=== PATIENT | male | born 1960 | race Caucasian/White ===

== ENCOUNTER 2019-06-10 09:42 | Inpatient (IN) | payer OTHER, SELFPAY ==
[2019-06-10] VITALS (11 sets, daily range): BP systolic 100–189; BP diastolic 79–99; PULSE 69–103; RESP 14–38; TEMP 35.9–37.2; O2SAT 89–94; BMI 41.8
--- NOTE | 2019-06-10 10:09 | RAD_ITS ---
STUDY: X-RAY CHEST REASON FOR EXAM: Male, 58 years old. dyspnea, cough TECHNIQUE: Single AP portable view of the chest. COMPARISON: None. FINDINGS: Patchy airspace disease within the mid to lower lobes bilaterally and along the periphery with areas of groundglass opacity present. There is no demonstrated pleural abnormality. Normal size heart. Normal mediastinum and sabas. Normal visualized pulmonary arteries. Normal visualized aortic arch and descending thoracic aorta. Normal visualized thoracic spine. Normal visualized ribs, clavicles, and shoulders. There is no demonstrated abnormality of the visualized soft tissue structures of the upper abdomen. RAD/Chest 1 View (Portable) IMPRESSION: Bilateral peripheral and central areas of airspace disease as above. Clinically correlate for acute infiltrate with underlying viral etiology of illness not excluded. Electronically Signed: Dann Barahona DO at 11:17 EDT , Service support ,
--- NOTE | 2019-06-10 10:09 | EKG12_ITS ---
Test Reason : COUGH Blood Pressure : / mmHG Vent. Rate : 067 BPM Atrial Rate : 067 BPM P-R Int : 124 ms QRS Dur : 096 ms QT Int : 408 ms P-R-T Axes : 008 -17 -03 degrees QTc Int : 431 ms Normal sinus rhythm Inferior infarct , age undetermined , cannot be excluded Abnormal ECG Confirmed by RAYMOND LAMBERT, MAGGI ([id number]), book editor SWAPNA GOMEZ ([id number]) on 06/13/2019 9:28:40 AM Referred By: JOAO Confirmed By:MAGGI ANDRADE MD
--- NOTE | 2019-06-10 10:11 | ED.VIS.URI ---
History of Present Illness Chief Complaint: Cough Informant: Patient Onset: Days - 9 days Context: Gradual Onset Timing: Continuous Quality: aching Location: myalgias Current Severity: Severe Maximum Severity: Severe Worsened by: - - nothing Relieved by: Tylenol Associated Symptoms: Nasal Congestion, Headache, Myalgias, Diarrhea, Shortness of Breath, Nonproductive cough. Negative for: Sinus Pressure, Nausea, Vomiting, Chest Pain, Hemoptysis, Productive Cough Narrative: 58-year-old male with a history of ulcerative colitis presents to the emergency department with 9 days of fever, cough, dyspnea on exertion and diarrhea. was seen here yesterday with similar symptoms. He states that he is not short of breath at rest only with exertion. Cough is nonproductive. He has not had any vomiting. He is having 8-10 episodes of loose watery diarrhea per day. He states that he normally has diarrhea from his ulcerative colitis but it has slightly worsened over the last 9 days. He has had intermittent fevers as high as 102 ?F orally. He did not have a fever today. He has general malaise and fatigue. No leg pain or swelling. No chest pain. No hemoptysis. He denies melena or hematochezia. He had a colonoscopy for his ulcerative colitis about 3 weeks ago and had his medications adjusted by his bobbin sorter at [facility]. He states he is on Remicade every 6 weeks and another oral medicine that he does not remember the name of. was tested for coronavirus here yesterday. She works in a [place]. Prior similar symptoms: No Recent Illness/Hospitalization: No Past Medical History - Allergies and Home Meds Allergies/Adverse Reactions: Allergies No Known Allergies Allergy (Verified 06/10/19 09:47) Primary Care Physician: Marcio Cortes,Out of [NON-STAFF] - Prior records reviewed: No Past Medical History: - - Ulcerative colitis and hyperlipidemia Surgical History: cholecystectomy Lives: With Family Smoking Status: Former smoker Alcohol: None Drugs: None Review of Systems General: Reports: Chills, Fever, Malaise Eyes: Denies: Visual changes - bilaterally, Blurred Vision - bilaterally, Diplopia ENT: Denies: Bilateral ear pain, Rhinorrhea, Sore throat Cardiovascular: Denies: Chest pain, Palpitations, Heart racing Respiratory: Reports: Dyspnea, Cough, Dyspnea on exertion. Denies: Sputum, Orthopnea, Paroxysmal nocturnal dyspnea Gastrointestinal: Reports: Diarrhea. Denies: Abdominal pain, Nausea, Vomiting, Constipation, Melena, Hematochezia Genitourinary: Denies: Dysuria, Hematuria, Frequency Musculoskeletal: Reports: Myalgias. Denies: Arthralgias, Neck pain, Back pain, Swelling, Extremity Pain Skin: Denies: Rash, Abscess, Abrasions, Wounds Neurological: Denies: Headache, Weakness, Parasthesia, Numbness Endocrine: Denies: Polyuria, Polydipsia Physical Exam Vital Signs/Narrative: Vital Signs Temp Pulse Resp BP Pulse Ox 06/10/19 09:44 96.7 F L 83 18 111/79 94 Inital Vital Signs reviewed: Yes General: Well nourished, Well developed Head: Normocephalic, Atraumatic Eyes: Perrl, EOMI Ears: Normal external canal, TM's clear Nose: Normal Inspection, No Rhinorrhea Mouth/Throat: Normal Inspection, No Posterior Erythema, Airway Patent Neck: Supple, Nontender, No Lymphadenopathy, No Meningismus Cardiovascular: Regular rate, Regular rhythm, No murmurs Respiratory: No distress, Chest nontender, Diminished Abdomen: Soft, Nontender, Nondistended, Normal bowel sounds, No masses Back: Nontender, Normal Inspection Extremities: Nontender, No edema Skin: Normal color, No rash Neurological: Alert, Oriented x3 Psychological: Normal affect, Normal Mood Diagnostic/Tx/Re-eval Chest X-Ray - ED: 1 View, Read by ED Physician, Read by Radiologist, Right Infiltrate, Left Infiltrate - Rhythm Strip Rhythm Strip: Sinus Rhythm Rate: 67 Ectopy: None - EKG Initial EKG Interpretation: Sinus Rhythm, No Acute Injury Pattern Prior: Unchanged - Medical Decision Making Patient presents with upper respiratory symptoms. His was seen here yesterday and worked up and discharged and tested for coronavirus. He is 93% on room air and is not normally on oxygen. He does not have a fever here but he took Tylenol this morning at 8 AM. His laboratory work-up was essentially unremarkable but his chest x-ray did show bilateral infiltrates with groundglass changes concerning for COVID-19. We had the patient walking in place in his room and he desaturated to 90% and his respiratory rate went up to 40 with a high concern for COVID-19. And with these findings with walking in place we feel the patient requires admission. Azithromycin for his bilateral pneumonia as we are on shortage of IV azithromycin and IV Rocephin . I spoke with the hospitalist who agreed to admit. At this time the patient's vital signs are stable. ED Disposition - Plan for ED Patient: Disposition: [facility] Diagnosis: Bilateral pneumonia, R/O COVID-19 Referrals: [facility] Doctor,Out of [NON-STAFF] -
[2019-06-10] MEDS: 0.9% Normal Saline 1,000 ML 1000 ML IV (10:15)
[2019-06-10 10:23] LABS: Absolute Lymphocyte Count 0.55 X10^3/uL (0.83-4.51); Absolute Neutrophil Count 6.5 X10^3/uL (2.0-7.7); Basophil# 0.01 X10^3/uL; Basophil% 0.1 % (0-1); Eosinophil# 0.12 X10^3/uL; Eosinophils% 1.6 % (0-5); Hematocrit 45.4 % (40-54); Hemoglobin 14.7 g/dL (13.0-16.5); Lymphocyte # 0.55 X10^3/ul (4.0); Lymphocyte % 7.3 % (19-41); Mean Corp Hgb Conc 32.4 g/dL (32-36); Mean Corpuscular Hgb 29.9 pg (27.0-32.0); Mean Corpuscular Volume 92.5 fL (80-94); Mean Platelet Vol. 9.7 fl (6.2-12.0); Monocyte# 0.41 X10^3/uL; Monocyte% 5.4 % (0-10); NRBC Flagged by Analyzer 0 % (0-5); Neutrophil # 6.45 X10^3/uL (2.7-7.7); Neutrophil % 85.5 % (47-70); POSITIVE DIFFERENTIAL YES; POSITIVE MORPHOLOGY YES; Platelet Count 244 K/mm3 (150-450); RBC Distribution Width CV 13.9 % (11.6-14.6); RBC Distribution Width SD 47.5 fl (35.1-43.9); Red Blood Count 4.91 M/mm3 (4.6-6.2); White Blood Count 7.6 K/mm3 (4.4-11.0)
[2019-06-10 10:25] LABS: Differential Indicated SCAN CRITERIA MET
[2019-06-10 10:34] LABS: Anion Gap 5 (5-15); BUN 13 mg/dL (7-18); BUN/Creat Ratio 13.4 RATIO (10-20); Chloride 107 mmol/L (98-107); Creatinine, Serum 0.97 mg/dL (0.70-1.30); EST Glomerular Filtration Rate 85 mL/min (>60); Est Glom Filt Rate - Afr Amer 103 mL/min (>60); Estimated Creatinine Clearance 82.27 ml/min; Glucose 119 mg/dL (74-106); Potassium 3.2 mmol/L (3.5-5.1); Sodium Level 140 mmol/L (136-145)
[2019-06-10] MEDS: Ceftriaxone 1 GM/50 ML BAG IV (12:02)
--- NOTE | 2019-06-10 12:03 | HP.PCM_ITS ---
History of Present Illness Date of Admission: 06/10/19 Chief Complaint: cough, shortness of breath The patient is a 58 year old M with a past medical history as outlined was admitted through the ED on 06/10/2019 with a complaint of cough and shortness of breath for about 9 days. His also had similar symptoms and came to the ED 1 day ago. She was screened for COVID-19 and tests pending and she was sent home. 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 Patient symptoms however persisted along with exertional dyspnea and worsening shortness of breath. He denies any recent travel or surgeries. . He admitted to low grade fever of ~ 101F, no chills, no nausea no vomiting or diarrhea. He did admit to palpitations but denied any chest pain. Review of systems was otherwise negative. On review in the ED, vitals were stable apart from respiratory rate which went as high as 38. Chemistry showed potassium of 3.2 and CBC was unremarkable with WBC of 7.6. EKG showed no acute ST changes. Chest x-ray showed bilateral peripheral and central areas of airspace disease. Chest CT done showed multifocal infiltrates consistent with multifocal pneumonia. He has been admitted to be managed for acute hypoxic respiratory insufficiency due to community-acquired pneumonia. COVID screen ordered by ED. [] Past Medical History Allergies No Known Allergies Allergy (Verified 06/10/19 09:47) Home Medications: Ambulatory Orders Medication Instructions Recorded Atorvastatin Calcium [Lipitor] 20 mg PO DAILY 06/10/19 Azathioprine 50 mg PO DAILY 06/10/19 Ferrous Sulfate 325 mg PO DAILY 06/10/19 Sertraline HCl [Zoloft] 100 mg PO DAILY 06/10/19 traZODone [Desyrel] 100 mg PO QHS 06/10/19 Surgical History: cholecystectomy Lives: With Family Smoking Status: Former smoker Alcohol: None Drugs: None - *Family History Maternal History Items: Diabetes, High Cholesterol, Hypertension Paternal History Items: No pertinent history Review of Systems Constitutional: Reports: Malaise, Weakness. Denies: Anorexia, Chills, Fever HEENT: Denies: Head Aches, Sinus Congestion, Sinus Drainage Cardiovascular: Denies: Chest Pain, Chest Tightness, Edema, Light Headedness, Palpitations Respiratory: Reports: Cough, Shortness of Breath, Shortness of breath at rest, Shortness of breath upon exertion, Sputum production. Denies: Hemoptysis, Pleuritic Pain, Wheezing Gastrointestinal: Denies: Abdominal Pain, Nausea, Vomiting Genitourinary: Denies: Dysuria Musculoskeletal: Denies: Joint Pain, Joint Tenderness Skin: Denies: Rash, Wounds Neurological: Denies: Numbness, Tingling, Focal weakness Psychiatric: Denies: Anxiety, Depression, Homicidal Ideations, Suicidal Ideations Hematologic/ Lymphatic: Denies: Easy Bruising, Easy Bleeding VTE Information - Inpt Only VTE Present on Admission: No VTE Pharm Prophylaxis ordered?: Yes Patient Problems: Active and Suspected Problems Bilateral pneumonia (Acute) - Physical Exam Vitals/I&O's: Vital Signs Temp Pulse Resp BP Pulse Ox 98.9 F 69 38 H 100/80 93 06/10/19 11:41 06/10/19 11:41 06/10/19 11:41 06/10/19 11:41 06/10/19 11:41 Oxygen Delivery Method Room Air Weight: 275 lb Body Mass Index (BMI) 41.8 General: Alert, Oriented x3, Cooperative, No apparent distress HEENT: Atraumatic, PERRLA, EOMI, Normocephalic Oral: Moist Mucosa Neck: Supple, No JVD, Negative Carotid Bruits Lungs: Clear to auscultation, Normal air movement, No rhonchi, No wheeze, No rales, Tachypneic Cardiovascular: Regular rate, Regular Rhythm, Normal S1, Normal S2, No murmurs Abdomen: Bowel Sounds Present, Soft, Non Tender, Non-Distended, No Hepato- splenomegaly Extremities: No clubbing, No cyanosis, No edema, Capillary Refill Less than 3 Seconds Skin: No rashes, No breakdown Musculoskeletal: No Tenderness to Palpation of Joints or Extremities Lymphatic: No Cervical, Supraclavicular, or Inguinal Adenopathy Neurological: Cranial nerves II-XII grossly intact, Neuro grossly intact, Motor Exam 5/5 strength throughout Psych/Mental Status: Normal Affect, Appropriate, Alert and oriented to time, place, person, mood and affect Laboratory Results 06/10/19 10:11: WBC 7.6, RBC 4.91, Hgb 14.7, Hct 45.4, MCV 92.5, MCH 29.9, MCHC 32.4, RDW Std Deviation 47.5 H, RDW Coeff of [place]mer[place] 13.9, Plt Count 244, MPV 9.7, Immature Gran % (Auto) 0.100, Neut % (Auto) 85.5 H, Lymph % (Auto) 7.3 L, [place] % (Auto) 5.4, Eos % (Auto) 1.6, Baso % (Auto) 0.1, Absolute Neuts (auto) 6.5, Absolute Lymphs (auto) 0.55 L, Nucleated RBC % 0, Differential Comment COMMENT 06/10/19 10:11: Sodium 140, Potassium 3.2 L, Chloride 107, Carbon Dioxide 28.0, Anion Gap 5, BUN 13, Creatinine 0.97, Estim Creat Clear Calc 82.27, Est GFR (MDRD) Af Amer 103, Est GFR (MDRD) Non-Af 85, BUN/Creatinine Ratio 13.4, Glucose 119 H, Calcium 9.0 Diagnostic Data Chest X-Ray 06/10/19 10:09 IMPRESSION: Bilateral peripheral and central areas of airspace disease as above. Clinically correlate for acute infiltrate with underlying viral etiology of illness not excluded. Electronically Signed: Dann Barahona DO at 11:17 EDT , Service support , Chest CTA 06/10/19 12:03 IMPRESSION: Multifocal infiltrates consistent with multifocal pneumonia. In the appropriate setting clinical setting and testing these findings could represent atypical viral pneumonia. No visualized pulmonary embolism. Mild cardiomegaly. Mild splenomegaly. Electronically Signed: Thuy Guzman MD at 14:14 EDT Tel , Service support , ADDENDUM: 06/10/19 1428 IMPRESSION: Multifocal infiltrates consistent with multifocal pneumonia. In the appropriate setting clinical setting and testing these findings could represent atypical viral pneumonia. No visualized pulmonary embolism. Mild cardiomegaly. Mild splenomegaly. N.B. : The above information has been verbally conveyed by Thuy Guzman MD to BHANU WARD, on 06/10/2019 14:21:23 (ET). Electronically Signed: Thuy Guzman MD at 14:14 EDT Tel , Service support , Current Medications Ceftriaxone Sodium (Rocephin) 1 gm in 50 mls @ 100 mls/hr IV X1 ONE Stop: 06/10/19 12:06 Last Admin: 06/10/19 12:02 Dose: 100 mls/hr Documented by: Assessment/Plan All Active Problems Bilateral pneumonia (Acute) 58-year-old male admitted with a complaint of shortness of breath and cough. 1. Community-acquired pneumonia and probable COVID infection * works in [employer], and had similar symptoms as patient * admit to Med Surg with telemetry * COVID screen ordered and is pending. COVID precautions. * Has no leukocytosis and chest x-ray showed bilateral peripheral and central areas of airspace disease. His chest CT done and is pending but by my read there is no evidence of PE and also shows evidence of bilateral pneumonia. * Titrate oxygen to maintain saturation above 90%. Continue breathing treatments with DuoNeb's. IV ceftriaxone and IV azithromycin. * Check for sputum cultures and blood cultures. * 2. Acute hypoxic respiratory insufficiency due to community-acquired pneumonia. * Patient became tachypneic up to the low 40s and high 30s. Saturation also dropped to about 88% with ambulation on room air. Chest x-ray findings as above. * On IV ceftriaxone every 3 x 3. Breathing treatments with DuoNeb's. * Titrate oxygen to maintain saturation above 90%. 3. hypokalemia: K is 3.2. Will replace and monitor 4. Hyperlipidemia: On atorvastatin. 5. Depression: On sertraline and trazodone. DVTProphylaxis: Lovenox Code Status: Full code * Patient counseled extensively about different types of CODE STATUS including full code, DNR CCA and DNR CCA. Patient elects to be full code. Total [id number] time 17 minutes. * Inpatient E&M: 66582 Init Hosp L3 Procedures: 64200 Advncd Care Plan 30 Min
--- NOTE | 2019-06-10 12:03 | CT_ITS ---
We are attempting to reach an attending provider to discuss findings. An addendum with communication details will be sent when the communication is complete. STUDY: CTA CHEST REASON FOR EXAM: Male, 58 years old. Dyspnea, cough x 1.5 weeks, fever, change in taste, chest tightness. RADIATION DOSAGE (If Supplied By Facility): CTDIvol = ( 11.47 ) mGy, DLP = ( 535.79 ) mGycm TECHNIQUE: The examination was performed with the intravenous administration of 100mL Isovue 370. Post-processing of the angiographic images was performed, with multiplanar reformation and 3D reconstruction. Individualized dose optimization techniques were used for this CT. COMPARISON: June 10, 2019 chest x-ray FINDINGS: Normal enhancement of the main pulmonary artery and right and left pulmonary arteries. Normal enhancement of the bilateral peripheral pulmonary arteries. There is no demonstrated pulmonary embolism. There is trace calcification of the aorta. There is no demonstrated aortic dissection. There is mild cardiac enlargement. There are a few nonspecific subcentimeter and borderline 1.2 cm mediastinal lymph nodes. Normal hilar regions. Normal visualized trachea and bronchi. There multifocal areas of subtle groundglass opacities in the lung apices with greater consolidation within the middle lobes and in the lung bases. There are few areas of rounded consolidation. Normal pleura. Normal chest wall structures. There are degenerative changes of thoracic spine. There are a few punctate calcifications in the spleen suggestive of old granulomatous disease. The spleen measures [address]/CTA Chest W/WO Contrast IMPRESSION: Multifocal infiltrates consistent with multifocal pneumonia. In the appropriate setting clinical setting and testing these findings could represent atypical viral pneumonia. No visualized pulmonary embolism. Mild cardiomegaly. Mild splenomegaly. Electronically Signed: Thuy Guzman MD at 14:14 EDT Tel , Service support ,
--- NOTE | 2019-06-10 12:06 | ED.DCSUM_ITS ---
- ER Visit Summary Date of Service: 06/10/19 Chief Complaint: [Cough and shortness of breath, addendum to dictation by physician certified physician's assistant Juan Jose Kingston] History of Present Illness: The patient is a 58 M [presented with cough and shortness of breath for about 9 days. Patient's also with similar sympt oms. Patient's works in a prison. Patient's was in the emergency department yesterday and tested for COVID-19. Patient complains of exertional dyspnea. Patient has been progressively getting more short of breath. He is not had any recent travel or surgery. He denies any chest pain.] Physical Examination: [HEENT-PERRLA, EOMI. Cranial nerves II through XII grossly intact. TMs clear. Mucous membranes moist. No adenopathy. Cardiovascular-regular rate and rhythm without murmur or ectopy Lungs-good aeration bilaterally. Patient has some rhonchi bilaterally. Coarse breath sounds bilaterally. Abdomen-normoactive bowel sounds, soft, nontender, no rebound or rigidity, no peritoneal signs. Extremities-intact ?4, normal range of motion, normal pulses, atraumatic] Test Results: [See with it was normal. Chemistries unremarkable. Chest x-ray showed bilateral infiltrates.] Emergency Department Course and Treatment: [She was started on Rocephin and Zithromax. Discussed case with hospitalist who requested a CT scan of the chest which was ordered. While walking in place in the department [place] rate increased to over 40 and O2 duration around 90%. Treatment Plan: [Admit for treatment of bilateral pneumonia and rule out COVID- 19] Disposition: [Admit] Impression: [Bilateral pneumonia line Rule out COVID-19] This note was generated with [employer] dictation software. It may contain incorrect words, spelling, and punctuation that were not noted in review of the chart prior to signing ED Disposition - Plan for ED Patient: Referrals: [facility] Doctor,Out of [NON-STAFF] -
[2019-06-10] MEDS: Azithromycin 250 MG Tablet 500 MG PO (12:14)
[2019-06-10] MEDS: 0.9% Normal Saline 1,000 ML 150 ML IV ×2 (15:15→21:52)
[2019-06-10] MEDS: Acetaminophen 325 MG Tablet 650 MG PO (21:44)
[2019-06-10] MEDS: traZODone 100 MG Tablet PO (21:44)
[2019-06-11] VITALS (15 sets, daily range): BP systolic 123–175; BP diastolic 60–90; PULSE 68–93; RESP 14–34; TEMP 36.8–37.2; O2SAT 91–98
[2019-06-11 04:46] LABS: Absolute Lymphocyte Count 0.74 X10^3/uL (0.83-4.51); Absolute Neutrophil Count 7.1 X10^3/uL (2.0-7.7); Basophil# 0.01 X10^3/uL; Basophil% 0.1 % (0-1); Eosinophils% 1.2 % (0-5); Hematocrit 39.1 % (40-54); Hemoglobin 12.6 g/dL (13.0-16.5); Lymphocyte # 0.74 X10^3/ul (4.0); Lymphocyte % 8.8 % (19-41); Mean Corp Hgb Conc 32.2 g/dL (32-36); Mean Corpuscular Hgb 29.9 pg (27.0-32.0); Mean Corpuscular Volume 92.7 fL (80-94); Mean Platelet Vol. 9.7 fl (6.2-12.0); Monocyte# 0.47 X10^3/uL; Monocyte% 5.6 % (0-10); NRBC Flagged by Analyzer 0 % (0-5); Neutrophil # 7.08 X10^3/uL (2.7-7.7); Neutrophil % 83.9 % (47-70); Platelet Count 220 K/mm3 (150-450); RBC Distribution Width CV 14.2 % (11.6-14.6); RBC Distribution Width SD 48.4 fl (35.1-43.9); Red Blood Count 4.22 M/mm3 (4.6-6.2); White Blood Count 8.4 K/mm3 (4.4-11.0)
[2019-06-11 04:59] LABS: Anion Gap 6 (5-15); BUN 10 mg/dL (7-18); BUN/Creat Ratio 14.1 RATIO (10-20); Calcium,Total 8.4 mg/dL (8.5-10.1); Chloride 108 mmol/L (98-107); Creatinine, Serum 0.71 mg/dL (0.70-1.30); EST Glomerular Filtration Rate 122 mL/min (>60); Est Glom Filt Rate - Afr Amer 148 mL/min (>60); Estimated Creatinine Clearance 112.39 ml/min; Glucose 81 mg/dL (74-106); Potassium 3.3 mmol/L (3.5-5.1); Sodium Level 140 mmol/L (136-145)
--- NOTE | 2019-06-11 07:52 | NURSING ---
Gave update to pt's over the phone.
--- NOTE | 2019-06-11 08:00 | PN_ITS ---
Patient Problems: Active and Suspected Problems Bilateral pneumonia (Acute) Subjective: Patient with continued dyspnea, worse than prior, more severe with any movement or activity. He notes even dyspnea with attempted to talk on the phone. He continues to have cough. He does admit now to a frontal throbbing headache and nausea but no emesis. He does note that the back of his neck aches in his back aches as well. Patient does feel worse today than upon ED presentation the day prior. Discussed patient's history and he notes that he is actually on Imuran 200 mg daily as well as Remicade every 6 weeks for ulcerative colitis, following with a GI physician in [facility]. Patient denies recurrent fevers, chills, emesis, abdominal pain, chest pain. Objective: Physical Examination: General: awake, alert, oriented x 3 and cooperative, seated upright in the ICU/MS status bed, fatigued, coughing. Skin: normal color, turgor, no icterus, cyanosis. HEENT: AT/NC, EOMI, PERRLA, mildly dry MM, requested placement of mask given coughing ongoing. Lungs: Diffusely diminished BS, > bases, moderate effort, coughing during examination (dry), no rales, ronchi or wheezing. Heart: mildly tachycardic with regular rhythm; no gallop, rub audible. Abdomen: soft, morbidly obese, NTTP, ND, mildly hyperactive BS. Extremities: no cyanosis, clubbing, or edema. Neurological: patient awake, alert, oriented x 3; cognitive function appears baseline intact; pupils equally reactive to light and accomodation; cranial nerves II-XII grossly normal, moving all 4 extremities, no focal deficits, strength severely globally decreased secondary to acute presentation. Psychiatric: affect appears fatigued, ill, no acute evidence of depressive or anxiety feelings. Vitals/I&O's: Vital Signs Temp Pulse Resp BP Pulse Ox 98.5 F 83 14 139/74 H 94 06/11/19 04:30 06/11/19 06:10 06/11/19 04:30 06/11/19 04:30 06/11/19 04:30 Oxygen Flow Rate (L/min) 2 Oxygen Delivery Method Nasal Cannula Weight: 275 lb Body Mass Index (BMI) 41.8 Intake and Output for Last 24 Hours 06/09/19 06/10/19 06/11/19 23:59 23:59 23:59 Intake Total 2522.5 / 3172.5 1850 / 1850 Output Total 90 / 90 Balance 2522.5 / 3172.5 1759 / 176 Microbiology Past 72 Hours 06/11/19 04:40 Urine, Clean Catch Streptococcus pneumoniae Antigen (M - Final 06/11/19 04:40 Urine, Clean Catch Legionella Antigen - Final 06/10/19 15:38 Mucosa - Nasopharyngeal Respiratory Panel (PCR) - Final Laboratory Results 06/10/19 10:11: WBC 7.6, RBC 4.91, Hgb 14.7, Hct 45.4, MCV 92.5, MCH 29.9, MCHC 32.4, RDW Std Deviation 47.5 H, RDW Coeff of Rosmery 13.9, Plt Count 244, MPV 9.7, Immature Gran % (Auto) 0.100, Neut % (Auto) 85.5 H, Lymph % (Auto) 7.3 L, [place] % (Auto) 5.4, Eos % (Auto) 1.6, Baso % (Auto) 0.1, Absolute Neuts (auto) 6.5, Absolute Lymphs (auto) 0.55 L, Nucleated RBC % 0, Differential Comment COMMENT 06/10/19 10:11: Sodium 140, Potassium 3.2 L, Chloride 107, Carbon Dioxide 28.0, Anion Gap 5, BUN 13, Creatinine 0.97, Estim Creat Clear Calc 82.27, Est GFR ( MDRD) Af Amer 103, Est GFR (MDRD) Non-Af 85, BUN/Creatinine Ratio 13.4, Glucose 119 H, Calcium 9.0 06/11/19 04:30: WBC 8.4, RBC 4.22 L, Hgb 12.6 L, Hct 39.1 L, MCV 92.7, MCH 29.9, MCHC 32.2, RDW Std Deviation 48.4 H, RDW Coeff of Rosmery 14.2, Plt Count 220, MPV 9.7, Immature Gran % (Auto) 0.400, Neut % (Auto) 83.9 H, Lymph % (Auto) 8.8 L, [place] % (Auto) 5.6, Eos % (Auto) 1.2, Baso % (Auto) 0.1, Absolute Neuts (auto) 7.1, Absolute Lymphs (auto) 0.74 L, Nucleated RBC % 0 06/11/19 04:30: Sodium 140, Potassium 3.3 L, Chloride 108 H, Carbon Dioxide 26.0, Anion Gap 6, BUN 10, Creatinine 0.71, Estim Creat Clear Calc 112.39, Est GFR (MDRD) Af Amer 148, Est GFR (MDRD) Non-Af 122, BUN/Creatinine Ratio 14.1, Glucose 81, Calcium 8.4 L Current Medications Acetaminophen (Tylenol) 650 mg PO Q6H PRN PRN PRN Reason: Pain Score 1-10/Temp > 100.7 F Last Admin: 06/10/19 21:44 Dose: 650 mg Documented by: Albuterol Sulfate (Ventolin Aerosols) 2.5 mg INHALATION Q2H PRN PRN PRN Reason: Shortness of Breath/Wheezing Atorvastatin Calcium (Lipitor) 20 mg PO QHS [facility] Azathioprine (Imuran) 50 mg PO DAILY [facility] Dextrose (D50w Syringe) 0 gm IV X1 PRN; Protocol PRN Reason: Hypoglycemia Enoxaparin Sodium (Lovenox) 40 mg SC DAILY [facility] Ferrous Sulfate (Ferrous Sulfate) 325 mg PO DAILYCM [facility] Glucagon () 1 mg IM .X1 PRN PRN Reason: Hypoglycemia Ceftriaxone Sodium 2 gm/ (Sodium Chloride) 50 mls @ 100 mls/hr IV Q24 [facility] Stop: 06/18/19 10:01 Azithromycin 500 mg/ Dextrose 255 mls @ 250 mls/hr IV Q24 [facility] Stop: 06/16/19 10:01 Ondansetron HCl (Zofran) 4 mg IV Q8H PRN PRN PRN Reason: NAUSEA/VOMITING Sertraline HCl (Zoloft) 100 mg PO DAILY [facility] Sodium Chloride () 10 - 40 ml IV UD PRN PRN Reason: SALINE FLUSH Trazodone HCl (Desyrel) 100 mg PO QHS [facility] Last Admin: 06/10/19 21:44 Dose: 100 mg Documented by: STROKE Vital Signs/Narrative: Vital Signs Temp Pulse Resp BP Pulse Ox 06/11/19 06:10 83 06/11/19 04:30 98.5 F 78 14 139/74 H 94 Medical Necessity - Tobacco Use Smoking Status: Former smoker Assessment/Plan All Active Problems Bilateral pneumonia (Acute) The patient is a 58 y/o M w/ PMHx: Ulcerative Colitis, HLD, Morbid Obesity, GERD, Depression and Anxiety, Former Tobacco use who presents to the [facility] ED on 06/10/19 with history of his recently being ill with upper respiratory type symptoms, 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 1. Acute Dyspnea, Cough, Fever with Bilateral Multifocal Pneumonia secondary to Suspected Acute Viral Syndrome, COVID-19: Patient with lymphopenia, CXR with bilateral peripheral and central areas of airspace disease, follow-up CTPA with multifocal infiltrates consistent with multifocal pneumonia, no evidence of pulmonary emboli, mild cardiomegaly, mild splenomegaly respiratory viral panel negative. Patient admitted from the ED as PCU status to the COVID unit (ICU), will maintain on oxygen with wean as tolerated to room air, continue PRN albuterol, maintain on IV Rocephin and Azithromycin, HOB, IS parameters w/ pending sputum cultures, noted negative urine antigens, will obtain procalcitonin, CRP, CPK, Ferritin, LDH, Alk phos/AST/ALT, continue supportive care including q 2 hour turning including prone given no prone bed availability and judicious hydration, closely monitor for worsening status for ARDS and multiorgan failure, requested COVID-19 testing and paperwork filled out and faxed to [facility] 06/11/19. If patient worsens with need for oxygen >6 L would plan consultation with the ICU physician and continued close evaluation for consideration of intubation. 2. Hypokalemia: Admission K+ 3.3, will obtain magnesium level, supplementation given, repeat level in AM. 3. Elevated BP without hypertensive diagnosis: Elevated systolic above goal upon presentation, has improved but will continue to closely monitor especially given concurrent history and habitus with initiation of oral regimen if appropriate, PRN IV hydralazine in interim. 4. Ulcerative colitis: Patient with Remicade every 6 weeks, following with GI physician in [facility], will continue patient azathioprine regimen with corrected dose. 5. Anxiety and Depression: Will continue home sertraline regimen. 6. Fe Deficiency Anemia: Admission hemoglobin 14.7, repeat on 06/11/2019 12.6, Will continue Fe supplementation. 7. Hyperlipidemia: Continue home statin regimen. AM FLP. 8. Morbid Obesity: Weight loss and lifestyle changes encouraged. 9. GERD: Maintain on famotidine. 10. DVT Prophylaxis: SCDs, lovenox. Inpatient E&M: [id number] [facility] Hosp L3
[2019-06-11] MEDS: Enoxaparin 40 MG/0.4 ML Syringe SC (10:07)
[2019-06-11] MEDS: Famotidine 20 MG Tablet 40 MG PO (10:07)
[2019-06-11] MEDS: guaiFENesin 1,200 MG Tablet 1200 MG PO ×2 (10:08→22:08)
[2019-06-11] MEDS: Ferrous Sulfate 325 MG Tablet PO (10:08)
--- NOTE | 2019-06-11 10:45 | CASEMGMT ---
RN CM Assessment Note Presentation: shortness of breath, COVID-19 testing. also has been tested, but is at home. Intro role of CM and purpose of RN CM assessment to patient via call to room. Demographics, PCP and Pharmacy verified. Pt states he is very independent, no prior care needs. Plan is to return home when able. Discussed testing for COVID 19 is pending and if pt would dc prior to results being back, would need to self isolate along with his . Pt does not have concerns re: food, medications as family can assist. Pt has area of home to self isolate if needed. RN CM let pt know nurse and physician would be reviewing instructions further on dc. Pt has good understanding and verbalized he has no questions at this time. PCP: Dr. Jose Santa Specialists: Dr. Geovani Mendez, GI specialist in [place], [place] (Hx of ulcerative colitis) Preferred Pharmacy: [facility] Insurance: [employer] Prescription Benefit: yes LNOK : , Amy Living Arrangements: Lives independently with . Denies any care needs prior to admission. Transportation: drives, can drive DME: none HHC: none Patient DC goals: Home on discharge DC PLAN: Home on discharge. Pt is on 2L NC and Saturation 93-95%. Will follow for discharge needs, and oxygen needs if indicated. RN CM advised to contact cm for any concerns/needs that may arise. Val STRINGER RN ACM
[2019-06-11 14:32] LABS: AST(SGOT) 34 U/L (15-37); Alanine Aminotransfer ALT/SGPT 37 U/L (16-61); Albumin, Serum 2.3 g/dL (3.2-5.0); Alkaline Phosphatase 59 U/L (45-117); Bilirubin, Direct 0.19 mg/dL (0.00-0.30); Ferritin 295 ng/mL (26-388); Globulin 4.3 g/dL (2.2-4.2); LDH 271 U/L (87-241); Magnesium 1.9 mg/dL (1.6-2.6); Protein, Total 6.6 g/dL (6.4-8.2)
--- NOTE | 2019-06-11 14:59 | CCHN_ITS ---
Hospitalist Note Patient reassessment as noted mild increased tachypnea and oxygenation lower 90s on 2 L nasal cannula. Patient resting, notes feeling improved since a.m. but states with any movement he does become extremely dyspneic. Currently respiratory rate in the high 20s oxygenating 91%. Increase oxygen to 3 L nasal cannula and let patient rest while visualizing and rate decreased and oxygenation increased to 93%. Discussed patient with mineral technologist and reviewed current presentation with plan continued close observation. RN and respiratory services also updated with continued close monitoring plan. Discussed intubation with patient and he would be amenable if increased oxygenation needs continue or if distress present.
[2019-06-11] MEDS: Acetaminophen 325 MG Tablet 650 MG PO ×2 (15:14→22:07)
[2019-06-11 15:35] LABS: Procalcitonin 0.08 ng/mL (0.00-0.09)
[2019-06-11] MEDS: 0.9% Saline Lock 10 ML Syringe IV (20:15)
--- NOTE | 2019-06-11 20:28 | NURSING ---
Pt states a metallic taste in mouth for past week. Decreased appetite, as evidenced by 20% of dinner eaten.
[2019-06-11] MEDS: Atorvastatin Calcium 20 MG Tablet PO (22:08)
[2019-06-11] MEDS: azaTHIOprine 50 MG Tablet 200 MG PO (22:09)
[2019-06-11] MEDS: Sertraline 100 MG Tablet PO (22:09)
[2019-06-11] MEDS: traZODone 100 MG Tablet PO (22:09)
[2019-06-12] VITALS (13 sets, daily range): BP systolic 118–163; BP diastolic 62–95; PULSE 61–91; RESP 17–27; TEMP 36.7–37.3; O2SAT 88–96
[2019-06-12 05:52] LABS: Absolute Lymphocyte Count 1.15 X10^3/uL (0.83-4.51); Absolute Neutrophil Count 7.1 X10^3/uL (2.0-7.7); Basophil# 0.01 X10^3/uL; Basophil% 0.1 % (0-1); Eosinophil# 0.02 X10^3/uL; Eosinophils% 0.2 % (0-5); Hematocrit 41.6 % (40-54); Hemoglobin 13.7 g/dL (13.0-16.5); Lymphocyte # 1.15 X10^3/ul (4.0); Lymphocyte % 13.2 % (19-41); Mean Corp Hgb Conc 32.9 g/dL (32-36); Mean Corpuscular Hgb 30.3 pg (27.0-32.0); Mean Platelet Vol. 9.6 fl (6.2-12.0); Monocyte# 0.44 X10^3/uL; NRBC Flagged by Analyzer 0 % (0-5); Neutrophil # 7.06 X10^3/uL (2.7-7.7); Platelet Count 262 K/mm3 (150-450); RBC Distribution Width CV 14.1 % (11.6-14.6); RBC Distribution Width SD 48.3 fl (35.1-43.9); Red Blood Count 4.52 M/mm3 (4.6-6.2); White Blood Count 8.7 K/mm3 (4.4-11.0)
[2019-06-12 06:09] LABS: ALB/GLOB Ratio 0.6 RATIO (0.9-2.4); AST(SGOT) 38 U/L (15-37); Alanine Aminotransfer ALT/SGPT 38 U/L (16-61); Albumin, Serum 2.6 g/dL (3.2-5.0); Alkaline Phosphatase 68 U/L (45-117); Anion Gap 8 (5-15); BUN 9 mg/dL (7-18); BUN/Creat Ratio 11.5 RATIO (10-20); Calcium,Total 8.7 mg/dL (8.5-10.1); Chloride 106 mmol/L (98-107); Creatinine, Serum 0.78 mg/dL (0.70-1.30); EST Glomerular Filtration Rate 109 mL/min (>60); Est Glom Filt Rate - Afr Amer 132 mL/min (>60); Estimated Creatinine Clearance 102.31 ml/min; Globulin 4.7 g/dL (2.2-4.2); Glucose 78 mg/dL (74-106); Potassium 3.2 mmol/L (3.5-5.1); Protein, Total 7.3 g/dL (6.4-8.2); Sodium Level 139 mmol/L (136-145)
--- NOTE | 2019-06-12 07:59 | PN_ITS ---
Patient Problems: Active and Suspected Problems Bilateral pneumonia (Acute) Subjective: Patient with no significant events overnight per self and per nursing report. He did have improvement in oxygenation and respiratory rate overnight as he had been significantly tachypneic and more hypoxic toward the afternoon of the day prior. He notes that he is still fatigued, weak, significantly dyspneic with any movement even rolling in the bed. He does have intermittent desaturations with movements. He notes continued dry cough, dyspnea, body aches with a stiff neck, nausea with decreased tolerance for meals and per discussions agreement to transition to clear liquids initially with no specific abdominal pain but ongoing loose stools concurrently. T-max overnight 99.2. Patient denies headaches, fevers, chills, emesis, abdominal pain, chest pain associated. Objective: Physical Examination: General: awake, alert, oriented x 3 and cooperative, laying in bed, fatigued, coughing still intermittently, more with requested increased effort and movement. Skin: normal color, turgor, no icterus, cyanosis. HEENT: AT/NC, EOMI, PERRLA, improved MMM, mask replaced. Lungs: Diffusely diminished BS, > bases, moderate effort, coughing continued intermittently during examination (dry), no rales, ronchi or wheezing. Heart: Improved, regular rate and regular rhythm currently; no gallop, rub audible. Abdomen: soft, morbidly obese, NTTP, ND, moderately hyperactive BS. Extremities: no cyanosis, clubbing, or edema. Neurological: patient awake, alert, oriented x 3; cognitive function appears baseline intact but notably fatigued, ill appearing; pupils equally reactive to light and accomodation; cranial nerves II-XII grossly normal, moving all 4 extremities, no focal deficits, strength severely globally decreased secondary to acute presentation. Psychiatric: affect appears fatigued, ill, no acute evidence of depressive or anxiety feelings. Vitals/I&O's: Vital Signs Temp Pulse Resp BP Pulse Ox 98.0 F 81 23 H 143/73 H 96 06/12/19 06:00 06/12/19 06:00 06/12/19 06:00 06/12/19 06:00 06/12/19 06:00 Oxygen Flow Rate (L/min) 2 Oxygen Delivery Method Nasal Cannula Weight: 275 lb Body Mass Index (BMI) 41.8 Intake and Output for Last 24 Hours 06/10/19 06/11/19 06/12/19 23:59 23:59 23:59 Intake Total 2522.5 / 3172.5 2155 / 2395 720 / 720 Output Total 90 / 90 Balance 2522.5 / 3172.5 2065 / 2305 720 / 720 Microbiology Past 72 Hours 06/10/19 21:45 Sputum, Expectorated/Coughed Gram Stain - Final 06/11/19 04:40 Urine, Clean Catch Streptococcus pneumoniae Antigen (M - Final 06/11/19 04:40 Urine, Clean Catch Legionella Antigen - Final 06/10/19 15:38 Mucosa - Nasopharyngeal Respiratory Panel (PCR) - Final Laboratory Results 06/11/19 04:30: Magnesium 1.9, Ferritin 295, Total Bilirubin 0.50, Direct Bilirubin 0.19, AST 34, ALT 37, Alkaline Phosphatase 59, Lactate Dehydrogenase 271 H, C-React Prot Ext Range 82.80 H, Total Protein 6.6, Albumin 2.3 L, Globulin 4.3 H 06/11/19 08:05: COVID-19 (HATTIE) Pending 06/11/19 15:00: Procalcitonin 0.08 06/12/19 05:40: WBC 8.7, RBC 4.52 L, Hgb 13.7, Hct 41.6, MCV 92.0, MCH 30.3, MCHC 32.9, RDW Std Deviation 48.3 H, RDW Coeff of Rosmery 14.1, Plt Count 262, MPV 9.6, Immature Gran % (Auto) 0.500, Neut % (Auto) 81.0 H, Lymph % (Auto) 13.2 L, [place] % (Auto) 5.0, Eos % (Auto) 0.2, Baso % (Auto) 0.1, Absolute Neuts (auto) 7.1, Absolute Lymphs (auto) 1.15, Nucleated RBC % 0 06/12/19 05:40: Sodium 139, Potassium 3.2 L, Chloride 106, Carbon Dioxide 25.0, Anion Gap 8, BUN 9, Creatinine 0.78, Estim Creat Clear Calc 102.31, Est GFR (MDRD) Af Amer 132, Est GFR (MDRD) Non-Af 109, BUN/Creatinine Ratio 11.5, Glucose 78, Calcium 8.7, Total Bilirubin 0.60, AST 38 H, ALT 38, Alkaline Phosphatase 68, Total Protein 7.3, Albumin 2.6 L, Globulin 4.7 H, Albumin/Globulin Ratio 0.6 L Current Medications Acetaminophen (Tylenol) 650 mg PO Q4H PRN PRN PRN Reason: Pain Score 1-10/Temp > 100.7 F Last Admin: 06/11/19 22:07 Dose: 650 mg Documented by: Albuterol Sulfate (Ventolin Aerosols) 2.5 mg INHALATION Q2H PRN PRN PRN Reason: Shortness of Breath/Wheezing Atorvastatin Calcium (Lipitor) 20 mg PO QHS [facility] Last Admin: 06/11/19 22:08 Dose: 20 mg Documented by: Azathioprine (Imuran) 200 mg PO 2200 [facility] Last Admin: 06/11/19 22:09 Dose: 200 mg Documented by: Dextrose (D50w Syringe) 0 gm IV X1 PRN; Protocol PRN Reason: Hypoglycemia Enoxaparin Sodium (Lovenox) 40 mg SC DAILY [facility] Last Admin: 06/11/19 10:07 Dose: 40 mg Documented by: Famotidine (Pepcid) 40 mg PO DAILY [facility] Last Admin: 06/11/19 10:07 Dose: 40 mg Documented by: Ferrous Sulfate (Ferrous Sulfate) 325 mg PO DAILYCM [facility] Last Admin: 06/11/19 10:08 Dose: 325 mg Documented by: Glucagon () 1 mg IM .X1 PRN PRN Reason: Hypoglycemia Guaifenesin (Mucinex) 1,200 mg PO BID [facility] Last Admin: 06/11/19 22:08 Dose: 1,200 mg Documented by: Hydralazine HCl (Apresoline Iv) 10 mg IV Q4H PRN PRN PRN Reason: SBP > 160 Ceftriaxone Sodium 2 gm/ (Sodium Chloride) 50 mls @ 100 mls/hr IV Q24 [facility] Stop: 06/18/19 10:01 Last Infusion: 06/11/19 10:38 Dose: Infused Documented by: Azithromycin 500 mg/ Dextrose 255 mls @ 250 mls/hr IV Q24 [facility] Stop: 06/16/19 10:01 Last Infusion: 06/11/19 12:37 Dose: Infused Documented by: Ondansetron HCl (Zofran) 4 mg IV Q8H PRN PRN PRN Reason: NAUSEA/VOMITING Sertraline HCl (Zoloft) 100 mg PO 2200 [facility] Last Admin: 06/11/19 22:09 Dose: 100 mg Documented by: Sodium Chloride () 10 - 40 ml IV UD PRN PRN Reason: SALINE FLUSH Last Admin: 06/11/19 20:15 Dose: 10 ml Documented by: Trazodone HCl (Desyrel) 100 mg PO QHS [facility] Last Admin: 06/11/19 22:09 Dose: 100 mg Documented by: STROKE Vital Signs/Narrative: Vital Signs Temp Pulse Resp BP Pulse Ox 06/12/19 06:00 98.0 F 81 23 H 143/73 H 96 Medical Necessity - Tobacco Use Smoking Status: Former smoker Assessment/Plan All Active Problems Bilateral pneumonia (Acute) The patient is a 58 y/o M w/ PMHx: Ulcerative Colitis, HLD, Morbid Obesity, GE RD, Depression and Anxiety, Former Tobacco use who presents to the [facility] ED on 06/10/19 with history of his recently being ill with upper respiratory type symptoms, 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 1. Acute Dyspnea, Cough, Fever with Bilateral Multifocal Pneumonia secondary to Suspected Acute Viral Syndrome, COVID-19: Patient with lymphopenia, CXR with bilateral peripheral and central areas of airspace disease, follow-up CTPA with multifocal infiltrates consistent with multifocal pneumonia, no evidence of pulmonary emboli, mild cardiomegaly, mild splenomegaly respiratory viral panel negative. Patient admitted from the ED as PCU status to the COVID unit (ICU), attempted 06/12/19 oxygenation decrease unsuccessful, still requiring now 2 L but attempting to assess with ambulation, expect >2L need, discussed with Pulmonary and they recommended to continue inpatient care until appropriate max 2L-3L usage with ambulation and activity. Continue PRN albuterol, maintain on IV Rocephin and Azithromycin, HOB, IS parameters w/ pending sputum cultures, noted negative urine antigens, pro calcitonin 0.08, lactate dehydrogenase 271, CRP 82.80, ferritin 295 all consistent in addition to imaging with COVID. Will continue supportive care including q 2 hour turning including prone given no prone bed availability and judicious hydration, closely monitor for worsening status for ARDS and multiorgan failure, requested COVID-19 testing which is pending. 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 If patient worsens with need for oxygen >6 L would plan consultation with the ICU physician and continued close evaluation for consideration of intubation. 2. Hypokalemia: Admission K+ 3.3, magnesium level 1.9, repeat 06/12/19 3.2, additional supplementation given, repeat level in AM. 3. Elevated BP without hypertensive diagnosis: Elevated systolic above goal upon presentation, worsens with any movement and desaturations, then normalizes, will continue to closely monitor with initiation of oral regimen if appropriate, PRN IV hydralazine in interim. 4. Ulcerative colitis: Patient with Remicade every 6 weeks, following with GI physician in [facility], will continue patient azathioprine regimen with corrected dose. Current diarrhea without abdominal pain with nausea likely secondary to #1. 5. Anxiety and Depression: Will continue home sertraline regimen. 6. Fe Deficiency Anemia: Admission hemoglobin 14.7, repeat on 06/12/2019 13.7, will continue Fe supplementation. 7. Hyperlipidemia: Continue home statin regimen. 8. Morbid Obesity: Weight loss and lifestyle changes encouraged. 9. GERD: Maintain on famotidine. 10. DVT Prophylaxis: SCDs, lovenox. 11. CODE STATUS: Full code. Inpatient E&M: [id number] Subs Hosp L2
[2019-06-12] MEDS: Famotidine 20 MG Tablet 40 MG PO (08:07)
[2019-06-12] MEDS: Ferrous Sulfate 325 MG Tablet PO (08:07)
[2019-06-12] MEDS: guaiFENesin 1,200 MG Tablet 1200 MG PO ×2 (08:07→21:22)
[2019-06-12] MEDS: Enoxaparin 40 MG/0.4 ML Syringe SC (08:07)
[2019-06-12] MEDS: 0.9% Saline Lock 10 ML Syringe IV (08:16)
--- NOTE | 2019-06-12 09:58 | CASEMGMT ---
RN CM Note. Chart reviewed. Pt continues to require oxygen, has shortness of breath with activity. Per physician- will continue care, no dc planned yet. Val MONTANAN RN AC
[2019-06-12] MEDS: Acetaminophen 325 MG Tablet 650 MG PO ×2 (13:29→21:22)
[2019-06-12] MEDS: azaTHIOprine 50 MG Tablet 200 MG PO (21:21)
[2019-06-12] MEDS: Atorvastatin Calcium 20 MG Tablet PO (21:22)
[2019-06-12] MEDS: Sertraline 100 MG Tablet PO (21:22)
[2019-06-12] MEDS: traZODone 100 MG Tablet PO (21:22)
[2019-06-13 02:00] VITALS: BP 127/74; PULSE 67; RESP 23; TEMP 36.6; O2SAT 97
[2019-06-13 04:00] VITALS: PULSE 61
[2019-06-13 04:54] LABS: Absolute Lymphocyte Count 0.82 X10^3/uL (0.83-4.51); Basophil# 0.01 X10^3/uL; Basophil% 0.2 % (0-1); Eosinophil# 0.06 X10^3/uL; Eosinophils% 1.1 % (0-5); Hemoglobin 12.9 g/dL (13.0-16.5); Lymphocyte # 0.82 X10^3/ul (4.0); Lymphocyte % 15.4 % (19-41); Mean Corp Hgb Conc 32.3 g/dL (32-36); Mean Corpuscular Hgb 29.5 pg (27.0-32.0); Mean Corpuscular Volume 91.5 fL (80-94); Mean Platelet Vol. 9.6 fl (6.2-12.0); Monocyte# 0.43 X10^3/uL; Monocyte% 8.1 % (0-10); NRBC Flagged by Analyzer 0 % (0-5); Neutrophil # 3.99 X10^3/uL (2.7-7.7); Neutrophil % 74.6 % (47-70); Platelet Count 265 K/mm3 (150-450); RBC Distribution Width SD 47.1 fl (35.1-43.9); Red Blood Count 4.37 M/mm3 (4.6-6.2); White Blood Count 5.3 K/mm3 (4.4-11.0)
[2019-06-13 05:11] LABS: ALB/GLOB Ratio 0.5 RATIO (0.9-2.4); AST(SGOT) 48 U/L (15-37); Alanine Aminotransfer ALT/SGPT 46 U/L (16-61); Albumin, Serum 2.3 g/dL (3.2-5.0); Alkaline Phosphatase 61 U/L (45-117); Anion Gap 6 (5-15); BUN 9 mg/dL (7-18); Calcium,Total 8.5 mg/dL (8.5-10.1); Chloride 107 mmol/L (98-107); Creatinine, Serum 0.69 mg/dL (0.70-1.30); EST Glomerular Filtration Rate 125 mL/min (>60); Est Glom Filt Rate - Afr Amer 152 mL/min (>60); Estimated Creatinine Clearance 115.65 ml/min; Globulin 4.5 g/dL (2.2-4.2); Glucose 79 mg/dL (74-106); Potassium 3.4 mmol/L (3.5-5.1); Protein, Total 6.8 g/dL (6.4-8.2); Sodium Level 140 mmol/L (136-145)
[2019-06-13 07:00] VITALS: PULSE 66; O2SAT 94
--- NOTE | 2019-06-13 07:19 | PN_ITS ---
Patient Problems: Active and Suspected Problems Bilateral pneumonia (Acute) Subjective: Patient overnight with no acute events per self or per nursing report. He notes feeling improved and less dyspneic than initial presentation however with any exertion still feels dyspneic. His oxygenation has improved. He notes that his abdominal cramping as well as nausea has improved but still having occasional loose stools and amenable to antidiarrheal regimen. Patient also notes that his coughing is lessened but recurrent with any exertion. Discussed recent results including positive COVID. Discussed plan of care which included oxygenation trial which was performed noting 92% on room air with oxygen removal within ambulation with decreased 87% with improvement to 90% with restart of 2 L nasal cannula and following this noted to be 90% resting on room air. Patient denies fevers, chills, nausea, emesis, abdominal pain, chest pain. Objective: Physical Examination: General: awake, alert, oriented x 3 and cooperative, seated upright in the bed, less fatigued than day prior, coughing only with examination but improved appearance. Skin: normal color, turgor, no icterus, cyanosis. HEENT: AT/NC, EOMI, PERRLA, MMM, mask replaced. Lungs: Improved air movement, still diffusely diminished BS, > bases, moderate effort, occasional coughing still with increased effort. Heart: Improved, regular rate and regular rhythm currently; no gallop, rub audible. Abdomen: soft, morbidly obese, minimal generalized discomfort to palpation, mildly to moderately hyperactive still. Extremities: no cyanosis, clubbing, or edema. Neurological: patient awake, alert, oriented x 3; cognitive function appears baseline intact, improved appearance, but notably fatigued, ill appearing; pupils equally reactive to light and accomodation; cranial nerves II-XII grossly normal, moving all 4 extremities, no focal deficits, strength improving, but still severely globally decreased secondary to acute presentation. Psychiatric: affect appears improved, less fatigued, no acute evidence of depressive or anxiety feelings. Vitals/I&O's: Vital Signs Temp Pulse Resp BP Pulse Ox 97.8 F 61 23 H 127/74 H 94 06/13/19 02:00 06/13/19 04:00 06/13/19 02:00 06/13/19 02:00 06/13/19 07:00 Oxygen Flow Rate (L/min) 2 Oxygen Delivery Method Nasal Cannula Weight: 276 lb 10.882 oz Body Mass Index (BMI) 41.8 Intake and Output for Last 24 Hours 06/11/19 06/12/19 06/13/19 23:59 23:59 23:59 Intake Total 2155 / 2395 2385 / 2385 240 / 240 Output Total 90 / 90 Balance 2065 / 2305 2385 / 2385 240 / 240 Microbiology Past 72 Hours 06/11/19 17:50 Sputum, Expectorated/Coughed Gram Stain - Final 06/11/19 17:50 Sputum, Expectorated/Coughed Respiratory Culture - Preliminary Appears to be normal respiratory willian. Further studies to follow. 06/10/19 21:45 Sputum, Expectorated/Coughed Gram Stain - Final 06/10/19 21:45 Sputum, Expectorated/Coughed Respiratory Culture - Preliminary Appears to be normal respiratory willian. Further studies to follow. 06/11/19 04:40 Urine, Clean Catch Streptococcus pneumoniae Antigen (M - Final 06/11/19 04:40 Urine, Clean Catch Legionella Antigen - Final 06/10/19 15:38 Mucosa - Nasopharyngeal Respiratory Panel (PCR) - Final Laboratory Results 06/11/19 08:05: COVID-19 (HATTIE) Detected 06/13/19 04:40: WBC 5.3, RBC 4.37 L, Hgb 12.9 L, Hct 40.0, MCV 91.5, MCH 29.5, MCHC 32.3, RDW Std Deviation 47.1 H, RDW Coeff of Rosmery 14.0, Plt Count 265, MPV 9.6, Immature Gran % (Auto) 0.600, Neut % (Auto) 74.6 H, Lymph % (Auto) 15.4 L, Dickinson % (Auto) 8.1, Eos % (Auto) 1.1, Baso % (Auto) 0.2, Absolute Neuts (auto) 4.0, Absolute Lymphs (auto) 0.82 L, Nucleated RBC % 0 06/13/19 04:40: Sodium 140, Potassium 3.4 L, Chloride 107, Carbon Dioxide 27.0, Anion Gap 6, BUN 9, Creatinine 0.69 L, Estim Creat Clear Calc 115.65, Est GFR (MDRD) Af Amer 152, Est GFR (MDRD) Non-Af 125, BUN/Creatinine Ratio 13.0, Glucose 79, Calcium 8.5, Total Bilirubin 0.50, AST 48 H, ALT 46, Alkaline Phosphatase 61, Total Protein 6.8, Albumin 2.3 L, Globulin 4.5 H, Albumin/Globulin Ratio 0.5 L Current Medications Acetaminophen (Tylenol) 650 mg PO Q4H PRN PRN PRN Reason: Pain Score 1-10/Temp > 100.7 F Last Admin: 06/12/19 21:22 Dose: 650 mg Documented by: Albuterol Sulfate (Proair Hfa (Sp) Surgery/Vent Pts) 1 puff INHALATION Q2H PRN PRN PRN Reason: Shortness of Breath/Wheezing Atorvastatin Calcium (Lipitor) 20 mg PO QHS [facility], [facility] Last Admin: 06/12/19 21:22 Dose: 20 mg Documented by: Azathioprine (Imuran) 200 mg PO 2200 [facility], [facility] Last Admin: 06/12/19 21:21 Dose: 200 mg Documented by: Dextrose (D50w Syringe) 0 gm IV X1 PRN; Protocol PRN Reason: Hypoglycemia Enoxaparin Sodium (Lovenox) 40 mg SC DAILY [facility], [facility]1983 Last Admin: 06/12/19 08:07 Dose: 40 mg Documented by: Famotidine (Pepcid) 40 mg PO DAILY [facility], [facility] Last Admin: 06/12/19 08:07 Dose: 40 mg Documented by: Ferrous Sulfate (Ferrous Sulfate) 325 mg PO DAILYCM [facility], [facility] Last Admin: 06/12/19 08:07 Dose: 325 mg Documented by: Glucagon () 1 mg IM .X1 PRN PRN Reason: Hypoglycemia Guaifenesin (Mucinex) 1,200 mg PO BID [facility], [facility] Last Admin: 06/12/19 21:22 Dose: 1,200 mg Documented by: Hydralazine HCl (Apresoline Iv) 10 mg IV Q4H PRN PRN PRN Reason: SBP > 160 Ceftriaxone Sodium 2 gm/ (Sodium Chloride) 50 mls @ 100 mls/hr IV Q24 [facility], [facility]1983 Stop: 06/18/19 10:01 Last Infusion: 06/12/19 08:43 Dose: Infused Documented by: Azithromycin 500 mg/ Dextrose 255 mls @ 250 mls/hr IV Q24 [facility] Stop: 06/16/19 10:01 Last Infusion: 06/12/19 09:18 Dose: Infused Documented by: Miscellaneous Information (Pocket Chamber) 1 each INHALATION PRN PRN PRN Reason: use with MDI Ondansetron HCl (Zofran) 4 mg IV Q8H PRN PRN PRN Reason: NAUSEA/VOMITING Potassium Chloride (K-Dur) 60 meq PO X1 ONE Stop: 06/13/19 07:19 Sertraline HCl (Zoloft) 100 mg PO 2200 [facility] Last Admin: 06/12/19 21:22 Dose: 100 mg Documented by: Sodium Chloride () 10 - 40 ml IV UD PRN PRN Reason: SALINE FLUSH Last Admin: 06/12/19 08:16 Dose: 10 ml Documented by: Trazodone HCl (Desyrel) 100 mg PO QHS [facility] Last Admin: 06/12/19 21:22 Dose: 100 mg Documented by: STROKE Vital Signs/Narrative: Vital Signs Pulse Pulse Ox 06/13/19 07:00 94 06/13/19 04:00 61 Medical Necessity - Tobacco Use Smoking Status: Former smoker Assessment/Plan All Active Problems Bilateral pneumonia (Acute) The patient is a 58 y/o M w/ PMHx: Ulcerative Colitis, HLD, Morbid Obesity, GERD, Depression and Anxiety, Former Tobacco use who presents to the [facility] ED on 06/10/19 with history of his recently being ill with upper respiratory type symptoms, 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 1. Acute Dyspnea, Cough, Fever with Bilateral Multifocal Pneumonia secondary to CONFIRMED Acute Viral Syndrome, COVID-19: ED presentation with lymphopenia, CXR with bilateral peripheral and central areas of airspace disease, follow-up CTPA with multifocal infiltrates consistent with multifocal pneumonia, no evidence of pulmonary emboli, mild cardiomegaly, mild splenomegaly respiratory viral panel negative. 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 Patient admitted from the ED as PCU status to the COVID unit (ICU), attempted 06/12/19 oxygenation decrease unsuccessful, improved oxygenation overnight with O2 assessment w/ ambulation 06/13/19 requring 2L NC only with ambulation to maintain 90% saturation. Continue PRN albuterol, maintain on IV Rocephin and Kym thromycin with oral transition at discharge and PRN albuterol for home. Sputum rare aretha, negative urine antigens, procalcitonin 0.08, lactate dehydrogenase 271, CRP 82.80, ferritin 295 all consistent in addition to imaging with COVID. Maintain on supportive care with encouraged aggressive positional changes and proning. Given clinical stabilization and oxygenation improvements will plan discharge to home today with continued home discharge precautions. Initiated also on antidiarrheal regimen PRN which will be continued at discharge. 2. Hypokalemia: Admission K+ 3.3, magnesium level 1.9, repeat 06/13/19 3.4, additional supplementation given. 3. Elevated BP without hypertensive diagnosis: Elevated systolic above goal upon presentation, worsens with any movement and desaturations, then normalizes, will have patient follow-up with PCP for repeat BP assessments and if remains elevated above goal (150s) then would add oral regimen. 4. Ulcerative colitis: Patient with Remicade every 6 weeks, following with GI physician in [facility], continued patient azathioprine regimen with corrected dose. Current diarrhea without abdominal pain with nausea likely secondary to #1. 5. Anxiety and Depression: Will continue home sertraline regimen. 6. Fe Deficiency Anemia: Admission hemoglobin 14.7, repeat on 06/13/2019 12.9, will continue Fe supplementation. 7. Hyperlipidemia: Continue home statin regimen. 8. Morbid Obesity: Weight loss and lifestyle changes encouraged. 9. GERD: Maintain on famotidine. 10. DVT Prophylaxis: SCDs, lovenox. 11. CODE STATUS: Full code. Inpatient E&M: 78387 Subs Hosp L2
[2019-06-13 08:00] VITALS: BP 154/74; PULSE 94; RESP 16; TEMP 36.6; O2SAT 92
[2019-06-13] MEDS: Ferrous Sulfate 325 MG Tablet PO (09:09)
[2019-06-13] MEDS: Enoxaparin 40 MG/0.4 ML Syringe SC (09:09)
[2019-06-13] MEDS: Famotidine 20 MG Tablet 40 MG PO (09:10)
[2019-06-13] MEDS: guaiFENesin 1,200 MG Tablet 1200 MG PO (09:10)
[2019-06-13] MEDS: 0.9% Saline Lock 10 ML Syringe IV (09:14)
[2019-06-13] MEDS: Acetaminophen 325 MG Tablet 650 MG PO (09:24)
[2019-06-13 09:25] VITALS: O2SAT 87; O2SAT 90
[2019-06-13] MEDS: Loperamide 2 MG Capsule PO (10:24)
--- NOTE | 2019-06-13 10:34 | DCINST_ITS ---
- Discharge Diagnoses Current Active Problems: Current Active and Chronic Problems 1. Acute Dyspnea, Cough, Fever with Bilateral Multifocal Pneumonia secondary to CONFIRMED Acute Viral Syndrome, COVID-19 2. Hypokalemia secondary to Diarrhea, GI losses 3. Elevated BP without hypertensive diagnosis 4. Ulcerative colitis, Chronic 5. Anxiety and Depression 6. Fe Deficiency Anemia 7. Hyperlipidemia 8. Morbid Obesity 9. GERD 10. CODE STATUS: Full code. You will use the following diet at home:: Other - Recommend cardiac diet. May maintain on full liquids and slowly transition to cardiac diet if still having any nausea. Your food should be the consistency of: Regular Your liquids should be the consistency of: Regular/Thin Discharge Activity: - - Continue supplemental oxygen until primary care re- evaluation and wean off once appropriate. Please maintain routine activity including out of bed/chair at least 6x daily and with all meals. Even when you do not have an appetite please eat a small portion of each meal. Maintain appropriate oral water intake. May resume sexual activity in: - - Avoid sexual intercourse until symptoms have completely resolved and afebrile. See instructions. Weight Bearing Status: Weight bearing as tolerated Call your doctor if you observe: Fever of 101 or Higher, Inability to urinate, Inability to have a bowel movement, Shortness of breath, Dizziness, Fainting spells, Chest pain, Uncontrolled pain Instructions: Traveling with Oxygen, Using Oxygen Safely, Using Oxygen at Home Additional Instructions: When can positive or suspected COVID-19 patients be discharged, what are the requirements and what needs to be in place for discharge? ?You can be discharged when you are clinically stable including improvement of oxygen needs and no high flow usage. ---You will need 2L NC continuous usage upon discharge. Please continue to lay on your belly (prone) frequently and rotate when resting also. ?You DO NOT need to meet criteria for transmission-based precautions to be discharged as these may be continued at home if needed. --In your case in your home this does not apply given your is also COVID positive. ?Household members must have access to PPE and willing to adhere to precaution measures at home if there are family members without COVID. ---In your care, your also has COVID therefore PPE is not necessary. ?Appropriate access to food delivery, supply delivery, medication delivery. ---Your noted she has been having delivery of supplies by your family, dropped in your garage and she has been able to cook. ---Your medications have been filled at the hospital to take home. ?Must be able to be transported by private vehicle. If it is another family member aside your dropping you at home, THEY MUST have PPE during the ride and you must also wear a mask. Home going instructions: ?Patient to continue similar isolation away from other family members and friends aside your who is also COVID positive. ?Please continue twice daily temperature checks, in the AM and evening and notify your primarly care physician immediately of any changes. Transmission-based Precaution Timeline: ?Patients with confirmed COVID-19 should remain under home isolation precautions for 7 days or until 72 hours after complete resolution of fever and symptoms (cough, dyspnea, myalgia, sore throat) without antipyretic medication (tylenol). ?Further testing is not required beyond this unless there was noted organ dysfunction. Follow-up Care: ?Please have immediate primary care follow-up (likely virtual). And they should be informed of a COVID-19 positive test. ?Please discuss any concerns and symptoms ongoing with your primary care physician as well as review temperature journal. IF YOU WORSEN AT ANY TIME, CONTACT EMS OR PRESENT TO THE ED FOR EVALUATION Allergies/Adverse Reactions: Allergies No Known Allergies Allergy (Verified 06/10/19 09:47) Medications to take at Discharge Atorvastatin Calcium [Lipitor] 20 mg PO DAILY 06/10/19 Azathioprine 50 mg PO DAILY 06/10/19 Ferrous Sulfate 325 mg PO DAILY 06/10/19 Sertraline HCl [Zoloft] 100 mg PO DAILY 06/10/19 traZODone [Desyrel] 100 mg PO QHS 06/10/19 Albuterol IH (ProAir) [Proair Hfa] 1 puff INHALATION Q2H PRN PRN #1 inhaler 06/13/19 Azithromycin 500 mg PO DAILY #1 tab 06/13/19 Cefdinir [Omnicef [equiv]] 300 mg PO Q12H #6 cap 06/13/19 Famotidine [Pepcid] 40 mg PO DAILY #30 tab 06/13/19 Guaifenesin [Mucinex] 1,200 mg PO BID #20 tab 06/13/19 Loperamide [Imodium] 2 mg PO Q4H PRN PRN #30 cap 06/13/19 Ondansetron [Zofran] 8 mg PO Q8H PRN PRN #30 tab 06/13/19 The following prescriptions were given: Azithromycin 500 mg PO DAILY #1 tab Transmission Status: Pending to [facility] Loperamide [Imodium] 2 mg PO Q4H PRN PRN #30 cap PRN Reason: LOOSE STOOLS Transmission Status: Pending to [facility] Guaifenesin [Mucinex] 1,200 mg PO BID #20 tab Transmission Status: Pending to [facility] Cefdinir [Omnicef [equiv]] 300 mg PO Q12H #6 cap Transmission Status: Pending to [facility] Famotidine [Pepcid] 40 mg PO DAILY #30 tab Transmission Status: Pending to [facility] Albuterol IH (ProAir) [Proair Hfa] 1 puff INHALATION Q2H PRN PRN #1 inhaler PRN Reason: Shortness of Breath/Wheezing Transmission Status: Pending to [facility] Ondansetron [Zofran] 8 mg PO Q8H PRN PRN #30 tab PRN Reason: nausea, emesis Transmission Status: Pending to [facility] Primary Care Physician: [facility] Doctor,Out of [NON-STAFF] - (Jose Santa) Please follow up with your Primary Care Physician in: Please follow-up within 2- 3 days preferentially of discharge. Test Results: Test results from this visit will be discussed in further detail at your follow- up appointment, if applicable. Proposed Discharge Date: 06/13/19
--- NOTE | 2019-06-13 10:52 | DS.PCM_ITS ---
Discharge Date and Diagnosis - Problem List Patient Problems: Active and Suspected Problems Bilateral pneumonia (Acute) Date of Admission: 06/10/19 Date of Discharge: 06/13/19 - Primary Discharge Diagnosis Active and Suspected Problems 1. Acute Dyspnea, Cough, Fever with Bilateral Multifocal Pneumonia secondary to CONFIRMED Acute Viral Syndrome, COVID-19 2. Hypokalemia secondary to Diarrhea, GI losses 3. Elevated BP without hypertensive diagnosis 4. Ulcerative colitis, Chronic 5. Anxiety and Depression 6. Fe Deficiency Anemia 7. Hyperlipidemia 8. Morbid Obesity 9. GERD 10. CODE STATUS: Full code. - Secondary Discharge Diagnosis 1. Ulcerative colitis, Chronic 2. Anxiety and Depression 3. Fe Deficiency Anemia 4. Hyperlipidemia 5. Morbid Obesity 6. 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 ED presentation with lymphopenia, CXR with bilateral peripheral and central areas of airspace disease, follow-up CTPA with multifocal infiltrates consistent with multifocal pneumonia, no evidence of pulmonary emboli, mild cardiomegaly, mild splenomegaly respiratory viral panel negative. 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 Patient admitted from the ED as PCU status to the COVID unit (ICU), attempted 06/12/19 oxygenation decrease unsuccessful, improved oxygenation overnight with O2 assessment w/ ambulation 06/13/19 requring 2L NC only with ambulation to maintain 90% saturation. Continue PRN albuterol, ma intain on IV Rocephin and Azithromycin with oral transition at discharge and PRN albuterol for home. Sputum rare aretha, negative urine antigens, procalcitonin 0.08, lactate dehydrogenase 271, CRP 82.80, ferritin 295 all consistent in addition to imaging with COVID. Maintain on supportive care with encouraged aggressive positional changes and proning. Given clinical stabilization and oxygenation improvements patient discharged to home with continued home discharge precautions, oxygenation and PRN agents as needed in addition to continued regimens as noted. Recommended follow-up with PCP closely and review of BP to ascertain if oral BP regimen start appropriate out of acute setting. Also, recommended close virtual PCP follow-up within 2-3 days to review admission, discuss COVID positive status. Discharge instructions included: When can positive or suspected COVID-19 patients be discharged, what are the requirements and what needs to be in place for discharge? ?You can be discharged when you are clinically stable including improvement of oxygen needs and no high flow usage. ---You will need 2L NC continuous usage upon discharge. Please continue to lay on your belly (prone) frequently and rotate when resting also. ?You DO NOT need to meet criteria for transmission-based precautions to be discharged as these may be continued at home if needed. ---In your case in your home this does not apply given your is also COVID positive. ?Household members must have access to PPE and willing to adhere to precaution measures at home if there are family members without COVID. ---In your care, your also has COVID therefore PPE is not necessary. ?Appropriate access to food delivery, supply delivery, medication delivery. ---Your noted she has been having delivery of supplies by your family, dropped in your garage and she has been able to cook. ---Your medications have been filled at the hospital to take home. ?Must be able to be transported by private vehicle. If it is another family member aside your dropping you at home, THEY MUST have PPE during the ride and you must also wear a mask. Home going instructions: ?Patient to continue similar isolation away from other family members and friends aside your who is also COVID positive. ?Please continue twice daily temperature checks, in the AM and evening and notify your primarily care physician immediately of any changes. Transmission-based Precaution Timeline: ?Patients with confirmed COVID-19 should remain under home isolation precautions for 7 days or until 72 hours after complete resolution of fever and symptoms (cough, dyspnea, myalgia, sore throat) without antipyretic medication (tylenol). ?Further testing is not required beyond this unless there was noted organ dysfunction. Follow-up Care: ?Please have immediate primary care follow-up (likely virtual). And they should be informed of a COVID-19 positive test. ?Please discuss any concerns and symptoms ongoing with your primary care physician as well as review temperature journal. IF YOU WORSEN AT ANY TIME, CONTACT EMS OR PRESENT TO THE ED FOR EVALUATION Patient Problems: Active and Suspected Problems Bilateral pneumonia (Acute) - Physical Exam Vitals/I&O's: Vital Signs Temp Pulse Resp BP Pulse Ox 97.9 F 94 16 154/74 H 90 06/13/19 08:00 06/13/19 08:00 06/13/19 08:00 06/13/19 08:00 06/13/19 09:25 Oxygen Flow Rate (L/min) [ 2 AMBULATION with Oxygen] Oxygen Flow Rate (L/min) 2 Oxygen Delivery Method Room Air Weight: 276 lb 10.882 oz Body Mass Index (BMI) 41.8 Intake and Output for Last 24 Hours 06/11/19 06/12/19 06/13/19 23:59 23:59 23:59 Intake Total 2155 / 2395 2385 / 2385 290 / 290 Output Total 90 / 90 Balance 2065 / 2305 2385 / 2385 290 / 290 Microbiology Past 72 Hours 06/11/19 17:50 Sputum, Expectorated/Coughed Gram Stain - Final 06/11/19 17:50 Sputum, Expectorated/Coughed Respiratory Culture - Preliminary Presumptive C albicans 06/10/19 21:45 Sputum, Expectorated/Coughed Gram Stain - Final 06/10/19 21:45 Sputum, Expectorated/Coughed Respiratory Culture - Preliminary Appears to be normal respiratory willian. Further studies to follow. 06/11/19 04:40 Urine, Clean Catch Streptococcus pneumoniae Antigen (M - Final 06/11/19 04:40 Urine, Clean Catch Legionella Antigen - Final 06/10/19 15:38 Mucosa - Nasopharyngeal Respiratory Panel (PCR) - Final Laboratory Results 06/11/19 08:05: COVID-19 (HATTIE) Detected 06/13/19 04:40: WBC 5.3, RBC 4.37 L, Hgb 12.9 L, Hct 40.0, MCV 91.5, MCH 29.5, MCHC 32.3, RDW Std Deviation 47.1 H, RDW Coeff of Rosmery 14.0, Plt Count 265, MPV 9.6, Immature Gran % (Auto) 0.600, Neut % (Auto) 74.6 H, Lymph % (Auto) 15.4 L, [place] % (Auto) 8.1, Eos % (Auto) 1.1, Baso % (Auto) 0.2, Absolute Neuts (auto) 4.0, Absolute Lymphs (auto) 0.82 L, Nucleated RBC % 0 06/13/19 04:40: Sodium 140, Potassium 3.4 L, Chloride 107, Carbon Dioxide 27.0, Anion Gap 6, BUN 9, Creatinine 0.69 L, Estim Creat Clear Calc 115.65, Est GFR (MDRD) Af Amer 152, Est GFR (MDRD) Non-Af 125, BUN/Creatinine Ratio 13.0, Glucose 79, Calcium 8.5, Total Bilirubin 0.50, AST 48 H, ALT 46, Alkaline Phosphatase 61, Total Protein 6.8, Albumin 2.3 L, Globulin 4.5 H, Albumin/Globulin Ratio 0.5 L Current Medications Acetaminophen (Tylenol) 650 mg PO Q4H PRN PRN PRN Reason: Pain Score 1-10/Temp > 100.7 F Last Admin: 06/13/19 09:24 Dose: 650 mg Documented by: Albuterol Sulfate (Proair Hfa (Sp) Surgery/Vent Pts) 1 puff INHALATION Q2H PRN PRN PRN Reason: Shortness of Breath/Wheezing Atorvastatin Calcium (Lipitor) 20 mg PO QHS [facility] Last Admin: 06/12/19 21:22 Dose: 20 mg Documented by: Azathioprine (Imuran) 200 mg PO 2200 [facility] Last Admin: 06/12/19 21:21 Dose: 200 mg Documented by: Dextrose (D50w Syringe) 0 gm IV X1 PRN; Protocol PRN Reason: Hypoglycemia Enoxaparin Sodium (Lovenox) 40 mg SC DAILY [facility] Last Admin: 06/13/19 09:09 Dose: 40 mg Documented by: Famotidine (Pepcid) 40 mg PO DAILY [facility] Last Admin: 06/13/19 09:10 Dose: 40 mg Documented by: Ferrous Sulfate (Ferrous Sulfate) 325 mg PO DAILYCM [facility] Last Admin: 06/13/19 09:09 Dose: 325 mg Documented by: Glucagon () 1 mg IM .X1 PRN PRN Reason: Hypoglycemia Guaifenesin (Mucinex) 1,200 mg PO BID [facility] Last Admin: 06/13/19 09:10 Dose: 1,200 mg Documented by: Hydralazine HCl (Apresoline Iv) 10 mg IV Q4H PRN PRN PRN Reason: SBP > 160 Ceftriaxone Sodium 2 gm/ (Sodium Chloride) 50 mls @ 100 mls/hr IV Q24 [facility] Stop: 06/18/19 10:01 Last Infusion: 06/13/19 09:39 Dose: Infused Documented by: Azithromycin 500 mg/ Dextrose 255 mls @ 250 mls/hr IV Q24 [facility] Stop: 06/16/19 10:01 Last Admin: 06/13/19 10:24 Dose: 250 mls/hr Documented by: Loperamide HCl (Imodium) 2 mg PO Q4H PRN PRN PRN Reason: LOOSE STOOLS Miscellaneous Information (Pocket Chamber) 1 each INHALATION PRN PRN PRN Reason: use with MDI Ondansetron HCl (Zofran) 4 mg IV Q8H PRN PRN PRN Reason: NAUSEA/VOMITING Sertraline HCl (Zoloft) 100 mg PO 2200 [facility] Last Admin: 06/12/19 21:22 Dose: 100 mg Documented by: Sodium Chloride () 10 - 40 ml IV UD PRN PRN Reason: SALINE FLUSH Last Admin: 06/13/19 09:14 Dose: 10 ml Documented by: Trazodone HCl (Desyrel) 100 mg PO QHS [facility] Last Admin: 06/12/19 21:22 Dose: 100 mg Documented by: Discharge Activity: - - Continue supplemental oxygen until primary care re- evaluation and wean off once appropriate. Please maintain routine activity including out of bed/chair at least 6x daily and with all meals. Even when you do not have an appetite please eat a small portion of each meal. Maintain appropriate oral water intake. May resume sexual activity in: - - Avoid sexual intercourse until symptoms have completely resolved and afebrile. See instructions. Weight Bearing Status: Weight bearing as tolerated Call your doctor if you observe: Fever of 101 or Higher, Inability to urinate, Inability to have a bowel movement, Shortness of breath, Dizziness, Fainting spells, Chest pain, Uncontrolled pain Home Medications: Medications to take at Discharge Atorvastatin Calcium [Lipitor] 20 mg PO DAILY 06/10/19 Azathioprine 50 mg PO DAILY 06/10/19 Ferrous Sulfate 325 mg PO DAILY 06/10/19 Sertraline HCl [Zoloft] 100 mg PO DAILY 06/10/19 traZODone [Desyrel] 100 mg PO QHS 06/10/19 Albuterol IH (ProAir) [Proair Hfa] 1 puff INHALATION Q2H PRN PRN #1 inhaler 06/13/19 Azithromycin 500 mg PO DAILY #1 tab 06/13/19 Cefdinir [Omnicef [equiv]] 300 mg PO Q12H #6 cap 06/13/19 Famotidine [Pepcid] 40 mg PO DAILY #30 tab 06/13/19 Guaifenesin [Mucinex] 1,200 mg PO BID #20 tab 06/13/19 Loperamide [Imodium] 2 mg PO Q4H PRN PRN #30 cap 06/13/19 Ondansetron [Zofran] 8 mg PO Q8H PRN PRN #30 tab 06/13/19 Following Prescrptions Were Given to Patient: Azithromycin 500 mg PO DAILY #1 tab Transmission Status: Pending to [facility] Loperamide [Imodium] 2 mg PO Q4H PRN PRN #30 cap PRN Reason: LOOSE STOOLS Transmission Status: Pending to [facility] Guaifenesin [Mucinex] 1,200 mg PO BID #20 tab Transmission Status: Pending to [facility] Cefdinir [Omnicef [equiv]] 300 mg PO Q12H #6 cap Transmission Status: Pending to [facility] Famotidine [Pepcid] 40 mg PO DAILY #30 tab Transmission Status: Pending to [facility] Albuterol IH (ProAir) [Proair Hfa] 1 puff INHALATION Q2H PRN PRN #1 inhaler PRN Reason: Shortness of Breath/Wheezing Transmission Status: Pending to [facility] Ondansetron [Zofran] 8 mg PO Q8H PRN PRN #30 tab PRN Reason: nausea, emesis Transmission Status: Pending to [facility] Primary Care Physician: [facility] Doctor,Out of [NON-STAFF] - (Jose Santa) Please follow up with your Primary Care Physician in: Please follow-up within 2- 3 days preferentially of discharge. Patient Instructions: Traveling with Oxygen, Using Oxygen Safely, Using Oxygen at Home Disposition: Home with Home Health Minutes spent on discharge:: 40 Patient Condition:: Stable Medical Necessity - Tobacco Use Smoking Status: Former smoker Meaningful Use Info Meaningful Use Diagnoses (Choose all that apply): None applicable Inpatient E&M: 14541 Disch Hosp
--- NOTE | 2019-06-13 11:02 | CASEMGMT ---
ARIES ZENG updated that patient will need home oxygen at discharge. ARIES ZENG called patient in room and provided list of home oxygen companies and patient is agreeable to [facility]. Script received and referral sent to [facility]. ARIES ZENG arranged for delivery of oxygen to room prior to discharge. Patient updated and had no further questions regarding discharge. Patient states his and children are able to assist with care, groceries, and medications.
== END 2019-06-13 13:15 | disposition home health service (06) | DRG 177 ==
LOC: ED 12:15 → ICU 06-11 07:12
PROVIDERS: Admitting Provider Student in an Organized Health Care Education/Training Program; Emergency Provider Physician Assistant Medical; PCP Family Medicine; Visit Provider Family Medicine
DX: U07.1 COVID-19 (principal); J12.89 Other viral pneumonia; Z68.41 Body mass index [BMI] 40.0-44.9, adult; K51.90 Ulcerative colitis, unspecified, without complications; E78.5 Hyperlipidemia, unspecified; K21.9 Gastro-esophageal reflux disease without esophagitis; E66.01 Morbid (severe) obesity due to excess calories; E87.6 Hypokalemia; R03.0 Elevated blood-pressure reading, without diagnosis of hypertension; F32.9 Major depressive disorder, single episode, unspecified; F41.9 Anxiety disorder, unspecified; D50.9 Iron deficiency anemia, unspecified; R09.02 Hypoxemia; D72.810 Lymphocytopenia; Z87.891 Personal history of nicotine dependence
CPT/HCPCS: 71045; 71275; 80048; 80053; 80076; 82728; 83615; 83735; 84145; 85025; 86140; 87070; 87205; 87449; 87633; 87635; 93005; 99285; J7030; J7040; Q9967; A4216; J0696; U0004

== ENCOUNTER 2021-04-14 13:34 | Emergency (ER) | payer OTHER, SELFPAY ==
[2021-04-14 13:35] VITALS: BP 161/104; PULSE 85; RESP 16; TEMP 35.9; O2SAT 96; BMI 44.1
--- NOTE | 2021-04-14 13:38 | RAD_ITS ---
STUDY: X-RAY CHEST REASON FOR EXAM: Male, 60 years old. COUGH TECHNIQUE: Single AP portable view of the chest. COMPARISON: Comparison is made with prior study dated 06/10/2019. FINDINGS: The lungs are clear and expanded. There is no demonstrated pleural abnormality. Normal size heart. Normal mediastinum and sabas. Normal visualized pulmonary arteries. Normal visualized aortic arch and descending thoracic aorta. Normal visualized thoracic spine. Normal visualized ribs, clavicles, and shoulders. There is no demonstrated abnormality of the visualized soft tissue structures of the upper abdomen. RAD/Chest 1 View IMPRESSION: Normal x-ray examination of the chest. Electronically Signed: True Meek MD at 14:24 EST ,
--- NOTE | 2021-04-14 16:23 | EX.ED.DYSGE1 ---
HPI History of Present Illness Chief Complaint: Cough Informant: patient and spouse/S.O. Narrative Narrative: Patient presents with cough. He states it started about a week and a half ago. He has done phone conversations with his physician. He is on a azithromycin. He has albuterol inhaler that helps a little bit but not a lot. He just started prednisone today and took few dose hours ago. He has Tessalon Perles. His biggest complaint is that he gets into coughing fits where he has trouble stopping. He is not nauseated but he coughs so hard he almost vomits. He has had myalgias. He is completely and fully vaccinated. He has had prior Covid and this does not seem like it. PFSH PFSH Medical History Depression Former smoker Home Medications atorvastatin 20 mg PO DAILY 06/10/19 [History Last Taken 06/10/19] azathioprine 50 mg PO DAILY 06/10/19 [History Last Taken 06/10/19] ferrous sulfate 325 mg PO DAILY 06/10/19 [History Last Taken 06/10/19] sertraline 100 mg PO DAILY 06/10/19 [History Last Taken 06/10/19] trazodone 100 mg PO QHS 06/10/19 [History Last Taken 06/09/19] albuterol sulfate 1 puff INHALATION Q2H PRN PRN #1 inhaler 06/13/19 [Rx Last Taken Unknown] azithromycin 500 mg PO DAILY #1 tab 06/13/19 [Rx Last Taken Unknown] cefdinir 300 mg PO Q12H #6 cap 06/13/19 [Rx Last Taken Unknown] famotidine 40 mg PO DAILY #30 tab 06/13/19 [Rx Last Taken Unknown] guaifenesin 1,200 mg PO BID #20 tab 06/13/19 [Rx Last Taken Unknown] loperamide 2 mg PO Q4H PRN PRN #30 cap 06/13/19 [Rx Last Taken Unknown] ondansetron HCl 8 mg PO Q8H PRN PRN #30 tab 06/13/19 [Rx Last Taken Unknown] Allergy/AdvReac Type Severity Reaction Status Date / Time No Known Allergies Allergy Verified 06/10/19 09:47 Surgical History History of cholecystectomy Social History Smoking Status: Former smoker ROS ROS ED Constitutional Constitutional ED: Reports chills and fever(s) Eyes Eyes: Denies blurry vision or change in vision ENT ENT ED: Reports rhinorrhea and sore throat Cardiovascular Cardiovascular: Denies chest pain or palpitations Respiratory/Chest Respiratory/Chest: Reports cough; Denies dyspnea Gastrointestinal Gastrointestinal: Denies nausea or vomiting Genitourinary Genitourinary ED: Denies dysuria Musculoskeletal Musculoskeletal: Reports myalgias Integumentary Denies rash Neurologic Neurologic: Denies headache(s) Endocrine Endocrinology: Denies polydipsia or polyuria Allergic/Immunologic Allergic/Immunologic ED: Denies mouth swelling or urticaria EXAM Physical Exam Const Vital Signs: 04/14/21 13:35 04/14/21 15:53 Temperature 96.7 F L Temperature Source Temporal Pulse Rate 85 Respiratory Rate 16 Respiratory Effort Normal Respiratory Depth Normal Respiratory Pattern Normal Blood Pressure 161/104 H Blood Pressure Mean 123 Pulse Ox 96 Oxygen Delivery Method Room Air Room Air Fraction of Inspired Oxygen (FIO2) 96 Positive well nourished and well developed General Appearance ED: well developed and NAD HEENT Reports moist mucous membranes Eyes General Eye ED: Negative for pale conjunctiva or scleral icterus Neck no JVD Chest Wall inspection of chest normal Resp normal respiratory effort Resp Narrative: Breathing is easy and unlabored and patient's not hypoxic. However, he does have end expiratory wheeze. Effort and Inspection: Negative for pain with movement Auscultation: wheezes; Negative for rales or rhonchi Cardio regular rate and regular rhythm GI normal to inspection, nondistended, normoactive bowel sounds and non-tender Palpation: soft Back/Spine no CVA tenderness Extremity normal to inspection General Extremety ED: Negative for edema or tenderness General Extremity: Negative for edema Neuro Sensorium / Orientation: alert Psych mental status grossly normal Skin no rashes or lesions noted and no wounds MDM MDM MDM Narrative Medical decision making narrative: Patient's x-ray shows no acute process. He does have with mild expiratory wheezing. We will give him a DuoNeb. He already started prednisone. He has prescription. He has all his other meds. I discussed testing for Covid. However, he is a week and a half into this and I think the rapid would not be ideal. He also is less than 90 days since he had Covid and I think the PCR should still be positive. He is not having chest pain. He has got a heart rate of 92. He has no pleuritic pain. No leg swelling. No acute worsening of dyspnea. His biggest complaint is cough rather than actual dyspnea. He has wheezing which explains his symptoms. He has a history of smoking although he quit about 15 years ago. I will write for a spacer so his albuterol works better. He was happy that his x-ray was normal and wants to go home and follow-up. Radiography Diagnostic Testing: Clinical Impression(s) from Imaging Studies Chest X-Ray 04/14/21 13:38 IMPRESSION: Normal x-ray examination of the chest. Electronically Signed: True Meek MD at 14:24 EST , Discharge Plan Triage Chief Complaint: Cough ED Provider: Rakesh Lora Dx/Rx/DC Orders Clinical Impression: URI with cough and congestion, Acute bronchospasm Instructions: ED Bronchitis with Wheezing (Adult) Prescriptions: No Action atorvastatin 20 MG tablet 20 mg PO DAILY RF: 0 sertraline 100 MG tablet 100 mg PO DAILY RF: 0 azathioprine 50 mg tablet 50 mg PO DAILY RF: 0 trazodone 100 MG tablet 100 mg PO QHS RF: 0 ferrous sulfate 325 MG tablet 325 mg PO DAILY RF: 0 loperamide 2 MG capsule 2 mg PO Q4H PRN PRN (Reason: LOOSE STOOLS) Qty: 30 RF: 0 famotidine 20 MG tablet 40 mg PO DAILY Qty: 30 RF: 0 albuterol sulfate 1 PUFF inhaler 1 puff inhalation Q2H PRN PRN (Reason: Shortness of Breath/Wheezing) Qty: 1 RF: 0 guaifenesin 1,200 MG tablet 1,200 mg PO BID Qty: 20 RF: 0 azithromycin 500 MG tablet 500 mg PO DAILY Qty: 1 RF: 0 cefdinir 300 MG capsule 300 mg PO Q12H Qty: 6 RF: 0 ondansetron HCl 8 MG tablet 8 mg PO Q8H PRN PRN (Reason: nausea, emesis) Qty: 30 RF: 0 Primary Care Provider: Jose Santa Referrals: Jose Santa MD [Primary Care Provider] - 3-5 Days if not improving Disposition Disposition: Home, Self Care
[2021-04-14 16:28] VITALS: PULSE 88; RESP 20
[2021-04-14] MEDS: Ipratropium/Albuterol Sulfate 3 ML AMPUL.NEB INHALATION (16:28)
[2021-04-14] MEDS: INHALER, ASSIST DEVICES 1 EACH SPACER INHALATION (16:29)
[2021-04-14 17:02] VITALS: BP 144/98; PULSE 86; RESP 18; O2SAT 94
--- NOTE | 2021-04-14 17:03 | ED.RN ---
WORK NOTE UNTIL Tue04/20/[address] DE LA O. PT GIVEN WRITTEN AND VERBAL DC INSTRUCTIONS. PT AMBULATED OUT OF DEPARTMENT WITHOUT DIFFICULTY
== END 2021-04-14 17:04 | disposition home or self-care (01) ==
PROVIDERS: Emergency Provider Emergency Medicine; PCP Family Medicine; Visit Provider Emergency Medicine
DX: J06.9 Acute upper respiratory infection, unspecified (principal); J98.01 Acute bronchospasm; Z87.891 Personal history of nicotine dependence
CPT/HCPCS: 71045; 94640; 99282

== ENCOUNTER 2021-04-29 07:31 | Emergency (ER) | payer OTHER, SELFPAY ==
[2021-04-29 07:33] VITALS: BP 218/113; PULSE 81; RESP 17; TEMP 36.1; O2SAT 98; BMI 43.5
--- NOTE | 2021-04-29 08:03 | CT_ITS ---
STUDY: CT ABDOMEN AND PELVIS WITHOUT CONTRAST REASON FOR EXAM: Male, 60 years old. Kidney Stone RADIATION DOSAGE (If Supplied By Facility): CTDIvol = ( 23.20 ) mGy, DLP = ( 1193.95 ) mGycm TECHNIQUE: Transaxial images were obtained from the dome of the diaphragm to the symphysis pubis without oral contrast, and without intravenous contrast. Sagittal and coronal images were reconstructed. Individualized dose optimization techniques were used for this CT. COMPARISON: None. FINDINGS: There is a 3 mm calcified granuloma in the peripheral lateral aspect of the left lower lobe. Coronary artery calcification. There is decreased attenuation of the liver consistent with steatosis. The patient is status post cholecystectomy. Normal spleen. Normal pancreas. Normal bilateral adrenal glands. There is evidence of a right perinephric stranding. Mild degree of left hydronephrosis and left hydroureter due to a 3 mm calculus at ureteropelvic junction. Normal left kidney. There is a small hiatal hernia. Normal small intestine. There are multiple colonic diverticula consistent with diverticulosis. The appendix is visualized and appears normal. There is diffuse atherosclerotic calcification of the abdominal aorta, without a demonstrated aneurysm. Normal inferior vena cava. Normal retroperitoneum. Normal urinary bladder. There is a small umbilical hernia containing fat. There are degenerative changes of the visualized lumbar spine. CT/Abdomen/Pelvis without Cont IMPRESSION: Fatty infiltration of the liver. Right perinephric stranding and a mild right hydronephrosis due to a 3 mm calculus at the right ureteropelvic junction. Sigmoid diverticulosis. Electronically Signed: True Meek MD at 8:44 EST ,
[2021-04-29 08:12] LABS: Mucous, Urine 0 SEEN /hpf (<or=2+)
[2021-04-29] MEDS: Morphine 4 MG/ML Syringe IV (08:16)
[2021-04-29] MEDS: 0.9% Normal Saline 1,000 ML IV.SOLN. 1000 ML OPERA.SITE (08:16)
[2021-04-29] MEDS: Ondansetron 4 MG/2 ML Vial IV (08:16)
[2021-04-29 08:19] LABS: Color, Urine Yellow (Yellow); Glucose, Dipstick Normal (Normal); Ketone-Dipstick 5 mg/dl (Negative); Leukocyte Esterase-Dipstick Negative /ul (Negative); Nitrite-Dipstick Negative (Negative); Occult Blood-Urine 250 /ul (Negative); Protein-Dipstick 30 mg/dl (Negative); Urine Bilirubin Dipstick Negative (Negative); Urine Clarity Cloudy (Clear); Urine Urobilinogen Normal (Normal)
[2021-04-29 08:20] LABS: Absolute Lymphocyte Count 0.51 X10^3/uL (0.83-4.51); Absolute Neutrophil Count 10.5 X10^3/uL (2.0-7.7); Basophil# 0.02 X10^3/uL; Basophil% 0.2 % (0-1); Eosinophil# 0.02 X10^3/uL; Eosinophils% 0.2 % (0-5); Hematocrit 45.3 % (40-54); Hemoglobin 15.7 g/dL (13.0-16.5); Lymphocyte # 0.51 X10^3/ul (0.83-4.51); Lymphocyte % 4.2 % (19-41); Mean Corp Hgb Conc 34.7 g/dL (32-36); Mean Corpuscular Volume 92.4 fL (80-94); Mean Platelet Vol. 9.9 fl (6.2-12.0); Monocyte# 0.96 X10^3/uL; Monocyte% 7.9 % (0-10); NRBC Flagged by Analyzer 0 % (0-5); Neutrophil # 10.54 X10^3/uL (2.7-7.7); POSITIVE DIFFERENTIAL YES; Platelet Count 290 K/mm3 (150-450); RBC Distribution Width CV 13.1 % (11.6-14.6); RBC Distribution Width SD 44.7 fl (35.1-43.9); White Blood Count 12.1 K/mm3 (4.4-11.0)
[2021-04-29 08:25] LABS: Differential Indicated SCAN CRITERIA MET
[2021-04-29 08:25] LABS: Red Blood Cells-Urine 50-100 SEEN /hpf (0-5)
[2021-04-29 08:26] LABS: Bacteria 1+ /hpf (None Seen); Squamous Epithelial Cells - UA 0-5 SEEN /hpf (0-5); White Blood Cells 0-5 SEEN /hpf (0-5)
[2021-04-29 08:37] LABS: BUN 13 mg/dL (7-18); Creatinine, Serum 1.24 mg/dL (0.70-1.30); Estimated Creatinine Clearance 62.82 ml/min; Glucose 142 mg/dL (74-106)
[2021-04-29 08:38] LABS: ALB/GLOB Ratio 0.9 RATIO (0.9-2.4); AST(SGOT) 25 U/L (15-37); Alanine Aminotransfer ALT/SGPT 34 U/L (16-61); Albumin, Serum 3.4 g/dL (3.2-5.0); Alkaline Phosphatase 82 U/L (45-117); Anion Gap 7 (5-15); BUN/Creat Ratio 10.5 RATIO (10-20); Calcium,Total 9.2 mg/dL (8.5-10.1); Chloride 106 mmol/L (98-107); EST Glomerular Filtration Rate 64 mL/min (>60); Est Glom Filt Rate - Afr Amer 77 mL/min (>60); Globulin 3.9 g/dL (2.2-4.2); Potassium 4.1 mmol/L (3.5-5.1); Protein, Total 7.3 g/dL (6.4-8.2); Sodium Level 139 mmol/L (136-145)
--- NOTE | 2021-04-29 08:40 | EX.ED.DYSGE1 ---
HPI History of Present Illness Chief Complaint: Abd Pain Informant: patient Narrative Narrative: Patient is a 60-year-old male with history of ulcerative colitis status post cholecystectomy presenting with sudden onset of right lower abdominal pain. He states it woke him up around 2:30 AM from sleep. Is been constant. It in his right lower abdomen and radiates to his back and slightly into his right groin. He never anything like this before. Remotely he was told he possibly passed a kidney stone in the past but was never diagnosed conclusively. Denies any associated fever or chills. Denies chest pain, shortness of breath or difficulty breathing. Has had nausea with vomiting that has been nonbloody nonbilious. Denies any numbness or weakness of his legs. Notes his urine very dark this morning. Took Tylenol around 4 AM. Was told by his GI doctor that he should not have ibuprofen because it can make his UC worse. PFSH PFSH Medical History Depression Former smoker Home Medications azathioprine 50 mg PO DAILY 06/10/19 [History Last Taken 06/10/19] ferrous sulfate 325 mg PO DAILY 06/10/19 [History Last Taken 06/10/19] sertraline 100 mg PO DAILY 06/10/19 [History Last Taken 06/10/19] trazodone 100 mg PO QHS 06/10/19 [History Last Taken 06/09/19] albuterol sulfate 1 puff INHALATION Q2H PRN PRN #1 inhaler 06/13/19 [Rx Last Taken Unknown] lisinopril 5 mg PO DAILY 04/29/21 [History Last Taken Unknown] omeprazole 40 mg PO DAILY 04/29/21 [History Last Taken Unknown] ondansetron 4 mg PO Q6H PRN #20 tab 04/29/21 [Rx Last Taken Unknown] oxycodone-acetaminophen [Percocet] 1 tab PO Q6H PRN 3 Days #12 tab 04/29/21 [Rx Last Taken Unknown] tamsulosin [Flomax] 0.4 mg PO DAILY #7 cap 04/29/21 [Rx Last Taken Unknown] Allergy/AdvReac Type Severity Reaction Status Date / Time No Known Allergies Allergy Verified 04/29/21 07:32 Surgical History History of cholecystectomy Social History Smoking Status: Former smoker ROS ROS ED Constitutional Constitutional ED: Denies chills or fever(s) Eyes Eyes: Denies change in vision ENT ENT ED: Denies ear pain or sore throat Cardiovascular Cardiovascular: Denies chest pain Respiratory/Chest Respiratory/Chest: Denies cough or dyspnea Gastrointestinal Gastrointestinal: Reports abdominal pain, nausea and vomiting; Denies constipation or diarrhea Genitourinary Genitourinary ED: Denies dysuria, hematuria or urinary frequency Musculoskeletal Musculoskeletal: Reports back pain; Denies arthralgias or myalgias Integumentary Denies rash Neurologic Neurologic: Denies headache(s), paresthesias or weakness EXAM Physical Exam Const Vital Signs: 04/29/21 07:33 Temperature 96.9 F L Temperature Source Temporal Pulse Rate 81 Respiratory Rate 17 Blood Pressure 218/113 H Blood Pressure Mean 148 Pulse Ox 98 Oxygen Delivery Method Room Air Positive well nourished, well developed and obese Constitutional Narrative: Uncomfortable secondary to pain General Appearance ED: well developed Nutritional Appearance: obese HEENT Reports moist mucous membranes Negative for tenderness Eyes PERRL and EOMs intact bilaterally Neck supple and no JVD Chest Wall inspection of chest normal Resp normal respiratory effort and clear to auscultation bilaterally Cardio regular rate, regular rhythm and no murmurs Rate: other Other Details: 2+ bilateral DP pulses GI non-tender Inspection: Negative for abdominal distention Palpation: soft; Negative for guarding, mass or rebound tenderness present Back/Spine no CVA tenderness Extremity normal to inspection General Extremety ED: Negative for edema or tenderness General Extremity: Negative for edema Neuro oriented x3 Sensorium / Orientation: alert Motor Exam: Negative for general weakness Psych mental status grossly normal Skin no rashes or lesions noted and no wounds MDM MDM MDM Narrative Medical decision making narrative: Patient evaluated for sudden onset of right flank pain. He appears significantly uncomfortable secondary to pain. He is neuro vastly intact in his lower extremities. Presentation is consistent with an obstructing kidney stone/renal colic. Urinalysis shows blood but no signs of other significant signs of infection. Kidney function is at his mildly above baseline at 1.24. He has a mild leukocytosis of 12.1 which I suspect is reactive. CT of the abdomen pelvis without contrast shows a 3 mm obstructing ureteral stone at the right UPJ with some associated stranding of the kidney and mild hydronephrosis. Patient is significant pain control with morphine. He is given IV fluids. Blood pressure improved significantly without any further intervention. I suspect that was a pain response. Repeat blood pressure is 150 systolic. Patient be discharged home with outpatient follow-up with urology, expectant management, urine strainer and pain/nausea medication. He will follow-up with his frankfurter inspector to see if he can take NSAIDs as well for his pain. Lab Data Labs: Laboratory Results - last 24 hr 04/29/21 04/29/21 04/29/21 07:59 08:05 08:05 WBC 12.1 H RBC 4.90 Hgb 15.7 Hct 45.3 MCV 92.4 MCH 32.0 MCHC 34.7 RDW Std Deviation 44.7 H RDW Coeff of [place] 13.1 Plt Count 290 MPV 9.9 Immature Gran % (Auto) 0.500 Neut % (Auto) 87.0 H Lymph % (Auto) 4.2 L [place] % (Auto) 7.9 Eos % (Auto) 0.2 Baso % (Auto) 0.2 Absolute Neuts (auto) 10.5 H Absolute Lymphs (auto) 0.51 L Nucleated RBC % 0 Sodium 139 Potassium 4.1 Chloride 106 Carbon Dioxide 26.0 Anion Gap 7 BUN 13 Creatinine 1.24 Estim Creat Clear Calc 62.82 Est GFR (MDRD) Af Amer 77 Est GFR (MDRD) Non-Af 64 BUN/Creatinine Ratio 10.5 Glucose 142 H Calcium 9.2 Total Bilirubin 0.50 AST 25 ALT 34 Alkaline Phosphatase 82 Total Protein 7.3 Albumin 3.4 Globulin 3.9 Albumin/Globulin Ratio 0.9 Urine Color Yellow Urine Clarity Cloudy Urine pH 6.0 Ur Specific [place] 1.020 Urine Protein 30 H Urine Glucose (UA) Normal Urine Ketones 5 H Urine Occult Blood 250 H Urine Nitrite Negative Urine Bilirubin Negative Urine Urobilinogen Normal Ur Leukocyte Esterase Negative Urine RBC 50-100 SEEN Urine WBC 0-5 SEEN Ur Squamous Epith Cells 0-5 SEEN Urine Bacteria 1+ Urine Mucus 0 SEEN Radiography Diagnostic Testing: Clinical Impression(s) from Imaging Studies Abdomen/Pelvis CT 04/29/21 08:03 IMPRESSION: Fatty infiltration of the liver. Right perinephric stranding and a mild right hydronephrosis due to a 3 mm calculus at the right ureteropelvic junction. Sigmoid diverticulosis. Electronically Signed: True Meek MD at 8:44 EST , Discharge Plan Triage Chief Complaint: Abd Pain ED Provider: Rama Head Dx/Rx/DC Orders Clinical Impression: Obstruction of right ureteropelvic junction (UPJ) due to stone Instructions: ED Kidney Stone w/ Colic Prescriptions: New oxycodone-acetaminophen [Percocet] 5-325 mg tablet 1 tab PO Q6H PRN (Reason: pain) 3 Days Qty: 12 RF: 0 ondansetron 4 mg tablet,disintegrating 4 mg PO Q6H PRN (Reason: nausea and vomiting) Qty: 20 RF: 0 tamsulosin [Flomax] 0.4 mg capsule 0.4 mg PO DAILY Qty: 7 RF: 0 No Action sertraline 100 MG tablet 100 mg PO DAILY RF: 0 azathioprine 50 mg tablet 50 mg PO DAILY RF: 0 trazodone 100 MG tablet 100 mg PO QHS RF: 0 ferrous sulfate 325 MG tablet 325 mg PO DAILY RF: 0 albuterol sulfate 1 PUFF inhaler 1 puff inhalation Q2H PRN PRN (Reason: Shortness of Breath/Wheezing) Qty: 1 RF: 0 omeprazole 40 mg capsule,delayed release(DR/EC) 40 mg PO DAILY RF: 0 lisinopril 10 mg tablet 5 mg PO DAILY RF: 0 Primary Care Provider: Jose Santa Referrals: Mark Gross MD [STAFF PHYSICIAN] - 3-5 Days if not improving Jose Santa MD [Primary Care Provider] - Activity Restrictions/Additional Instructions: Make sure you are drinking lots of fluids Disposition Disposition: Home, Self Care
[2021-04-29] MEDS: oxyCODONE 5 MG Tablet PO (09:52)
[2021-04-29 09:56] VITALS: BP 138/67; PULSE 71; RESP 15; O2SAT 98
== END 2021-04-29 09:57 | disposition home or self-care (01) ==
PROVIDERS: Emergency Provider Emergency Medicine; PCP Family Medicine; Visit Provider Emergency Medicine
DX: N13.5 Crossing vessel and stricture of ureter without hydronephrosis (principal); E66.9 Obesity, unspecified; F32.A Depression, unspecified; Z87.891 Personal history of nicotine dependence; Z79.899 Other long term (current) drug therapy
CPT/HCPCS: 74176; 80053; 81001; 85025; 96374; 96375; 99284; J7030; A4216; J2405

== ENCOUNTER 2021-11-02 10:25 | Emergency (ER) | payer OTHER, SELFPAY ==
[2021-11-02 10:26] VITALS: BP 173/90; PULSE 84; RESP 18; TEMP 36.6; O2SAT 96; BMI 44.1
--- NOTE | 2021-11-02 10:42 | EDS_ITS ---
HPI History of Present Illness Chief Complaint: Rash Informant: patient Narrative Narrative: Patient is a 61-year-old male with history of ulcerative colitis on regular injections of Inflectra (last injection 10/09) presenting with worsening redness and rash on the left side of his face. He states a week ago he started with a left earache and then 3 days ago he started to have pain and swelling around his left eye. He developed rash over his left forehead the following day. Patient states his vision is okay but his eyes feel very dry. States the rash is very painful. Patient's regular community case manager is with [facility]. [facility] Medical History Depression Former smoker Home Medications azathioprine 50 mg tablet 50 mg PO DAILY 06/10/19 [History Last Taken 06/10/19] ferrous sulfate 325 mg (65 mg iron) tablet 325 mg PO DAILY 06/10/19 [History Last Taken 06/10/19] sertraline 100 mg tablet 100 mg PO DAILY 06/10/19 [History Last Taken 06/10/19] trazodone 100 mg tablet 100 mg PO QHS 06/10/19 [History Last Taken 06/09/19] albuterol sulfate 90 mcg/actuation aerosol inhaler 1 puff inhalation Q2H PRN PRN Shortness of Breath/Wheezing ##1 06/13/19 [Rx Last Taken Unknown] lisinopril 10 mg tablet 5 mg PO DAILY 04/29/21 [History Last Taken Unknown] omeprazole 40 mg capsule,delayed release 40 mg PO DAILY 04/29/21 [History Last T aken Unknown] ondansetron 4 mg disintegrating tablet 4 mg PO Q6H PRN nausea and vomiting #20 tabs 04/29/21 [Rx Last Taken Unknown] oxycodone-acetaminophen 5 mg-325 mg tablet (Percocet) 1 tab PO Q6H PRN pain 3 days #12 tabs 04/29/21 [Rx Last Taken Unknown] tamsulosin 0.4 mg capsule (Flomax) 0.4 mg PO DAILY #7 caps 04/29/21 [Rx Last Taken Unknown] acyclovir 800 mg tablet 800 mg PO 5X/DAY #35 tabs 11/02/21 [Rx Last Taken Unknown] oxycodone-acetaminophen 5 mg-325 mg tablet (Percocet) 1 tab PO Q6H PRN pain 3 days #12 tabs 11/02/21 [Rx Last Taken Unknown] Allergy/AdvReac Type Severity Reaction Status Date / Time No Known Allergies Allergy Verified 11/02/21 10:27 Surgical History History of cholecystectomy Social History Smoking Status: Former smoker ROS ROS ED Constitutional Constitutional ED: Denies chills or fever(s) Eyes Eyes: Reports other Details: left eye pain, dry eye, redness, left eyelid redness and swelling ; Denies blurry vision ENT ENT ED: Reports ear pain left; Denies rhinorrhea or sore throat Cardiovascular Cardiovascular: Denies chest pain Respiratory/Chest Respiratory/Chest: Denies cough Gastrointestinal Gastrointestinal: Denies abdominal pain, nausea or vomiting Musculoskeletal Musculoskeletal: Reports neck pain; Denies arthralgias Integumentary Reports rash Neurologic Neurologic: Reports headache(s); Denies paresthesias or weakness EXAM Physical Exam Const Vital Signs: 11/02/21 10:26 11/02/21 12:23 Temperature 97.9 F Temperature Source Temporal Pulse Rate 84 75 Respiratory Rate 18 18 Blood Pressure 173/90 H 156/88 H Blood Pressure Mean 117 Pulse Ox 96 95 Oxygen Delivery Method Room Air Positive well nourished and well developed General Appearance ED: well developed and NAD HEENT Reports moist mucous membranes HEENT Narrative: Scattered vesicular erythematous rash tenderness Eyes PERRL and EOMs intact bilaterally Eyes Narrative: Mild scleral edema with injection diffusely. No drainage of the eye. On fluorescein exam there is no uptake. Anterior chamber quiet Neck supple Chest Wall inspection of chest normal Resp normal respiratory effort Cardio regular rate and regular rhythm Neuro oriented x3, CN's II-XII intact bilaterally and no sensory deficits noted Motor Exam: Negative for general weakness Psych mental status grossly normal Skin Skin Narrative: Scattered erythematous vesicular rash in the V1 distribution consistent with shingles MDM MDM MDM Narrative Medical decision making narrative: Patient evaluated for worsening pain and redness of his left upper face and left upper eyelid. Clinically he has shingles in the V1 distribution of his left face. Slit-lamp exam does not show any lesions on the cornea. Given the amount of eyelid involvement and conjunctival injection I did speak with ophthalmology, Dr. Enamorado, who states they can see him for comprehensive eye exam either later today or tomorrow morning early. Patient is immunosuppressed any related symptoms for a week will be covered with valacyclovir and is given Percocet for pain control. Patient cannot take NSAIDs because of his inflammatory bowel disease. I did initially attempt to call the patient's community case manager to see if he can have follow-up today however they are not in the office today. Discharge Plan Triage Chief Complaint: Rash ED Provider: Rama Head Dx/Rx/DC Orders Clinical Impression: Shingles of eyelid, Neuralgic facial pain, Pain and swelling of upper eyelid of left eye, Immunosuppressed status Instructions: ED Shingles (Herpes Zoster) Prescriptions: New oxycodone-acetaminophen [Percocet] 5-325 mg tablet 1 tab PO Q6H PRN (Reason: pain) 3 Days Qty: 12 0RF acyclovir 800 mg tablet 800 mg PO 5X/DAY Qty: 35 0RF No Action sertraline 100 MG tablet 100 mg PO DAILY azathioprine 50 mg tablet 50 mg PO DAILY Label Comments: take 4 tablets by mouth once daily trazodone 100 MG tablet 100 mg PO QHS ferrous sulfate 325 MG tablet 325 mg PO DAILY albuterol sulfate 1 PUFF inhaler 1 puff inhalation Q2H PRN PRN (Reason: Shortness of Breath/Wheezing) Qty: 1 0RF omeprazole 40 mg capsule,delayed release(DR/EC) 40 mg PO DAILY Label Comments: take 1 capsule by mouth once daily lisinopril 10 mg tablet 5 mg PO DAILY Label Comments: take 1 tablet by mouth once daily oxycodone-acetaminophen [Percocet] 5-325 mg tablet 1 tab PO Q6H PRN (Reason: pain) 3 Days Qty: 12 0RF ondansetron 4 mg tablet,disintegrating 4 mg PO Q6H PRN (Reason: nausea and vomiting) Qty: 20 0RF tamsulosin [Flomax] 0.4 mg capsule 0.4 mg PO DAILY Qty: 7 0RF Primary Care Provider: Jose Santa Referrals: Zachariah Enamorado MD [Med Staff - Active Staff] - 1 Day for another exam Jose Santa MD [Primary Care Provider] - Activity Restrictions/Additional Instructions: Please call the eye doctor soon as you leave the ER to either be seen later today or tomorrow morning for further evaluation of your eye. Shingles are technically contagious until the lesions have all scabbed over. Disposition Disposition: Home, Self Care Discharge Date/Time: 11/02/21 12:24
[2021-11-02] MEDS: oxyCODONE 5 MG Tablet PO (11:02)
[2021-11-02] MEDS: Fluorescein 1 MG STRIP 1 STRIP OPHTHALMIC (11:02)
[2021-11-02] MEDS: Acyclovir 800 MG Tablet PO (11:06)
[2021-11-02 12:23] VITALS: BP 156/88; PULSE 75; RESP 18; O2SAT 95
== END 2021-11-02 12:24 | disposition home or self-care (01) ==
PROVIDERS: Emergency Provider Emergency Medicine; PCP Family Medicine; Visit Provider Emergency Medicine
DX: B02.9 Zoster without complications (principal); D84.9 Immunodeficiency, unspecified; R51.9 Headache, unspecified; R22.0 Localized swelling, mass and lump, head; H57.12 Ocular pain, left eye; Z87.891 Personal history of nicotine dependence
CPT/HCPCS: 99283; J7030; A4216